=== PATIENT | female | born 1970 | race Caucasian/White ===

== ENCOUNTER 2018-12-04 10:30 | Inpatient (IN) | payer OTHER ==
[2018-12-04 12:44] VITALS: BMI 25.3
--- NOTE | 2018-12-04 14:03 | HP ---
COWS - Scale Resting Pulse: 0= [place] 80 or Below Sweatin= Chills/Flushing Restless Observation: 0= Sits Still Pupil Size: 0= Normal to Room Light Bone or Joint Aches: 4=Acute Joint/Muscle Pain Runny Nose/ Eye Tearin= None GI Upset > 30mins: 2= Nausea/Diarrhea Tremor Observation: 0= None Yawning Observation: 0= None Anxiety or Irritability: 2=Irritable/Anxious Goose Flesh Skin: 0=Smooth Skin COWS Score: 9 CIWA Score Nausea/Vomitin-Mild Nausea/No Vomiting Muscle Tremors: None Anxiety: 4-Mod. Anxious/Guarded Agitation: 1-Slight > Activity Paroxysmal Sweats: No Perspiration Orientation: 2-Disoriented Date<2 days Tacttile Disturbances: 2-Mild Itch/Numbness/Burn Auditory Disturbances: 0-None Visual Disturbances: 2-Mild Sensitivity Headache: 2-Mild CIWA-Ar Total Score: 14 - Admission Criteria OASAS Guidelines: Admission for Medically Managed Detox: Requires at least one of the followin. CIWA greater than 12 2. Seizures within the past 24 hours 3. Delirium tremens within the past 24 hours 4. Hallucinations within the past 24 hours 5. Acute intervention needed for co occurring medical disorder 6. Acute intervention needed for co occurring psychiatric disorder 7. Severe withdrawal that cannot be handled at a lower level of care (continued vomiting, continued diarrhea, abnormal vital signs) requiring intravenous medication and/or fluids 8. Admission ROS [facility] Allergies/Adverse Reactions: Allergies Allergy/AdvReac Type Severity Reaction Status Date / Time Penicillins AdvReac Hives Verified 12/04/18 12:22 shellfish derived AdvReac Swelling Verified 12/04/18 12:21 History of Present Illness: 48 y.o. pt requesting detox from etoh and opiate use , reports 1 -2 pints / day x " many years " since teens , reports longest sobriety 3 days , reports tremors if not drinking , denies seizures or blackouts , starts drinking upon awakening , latest use 2 days ago , current symptoms as above . heroin - reports 20 bags /day ivdu in toshia hands , needles from exchange , denies sharing, +re-using, denies abscess , denies OD , latest use yesterday evening , current symptoms as above , first age of use 27 from [place] . cocaine : " depends how much money I have " 50-500$ tobacco : 1 ppd . PMHX : asthma since childhood , intubated as , RA , chronic back pain 2/2 herniated discs PSych ; bipolar d/o manic/depressive, anxiety , denies SI / HI PSHx : r le laceration w/ nerve re-attachment in childhood ( age 9 ) LMP 18 mo ago . SHX : homeless , unemployed , denies legal issues. This report was requested by: Fannie De La Rosa | Reference #: [id number] Others' Prescriptions Patient Name: Sunita English Date: 1970 Address: [address] [place] [address] Sex: Female Rx Written Rx Dispensed Drug Quantity Days Supply Prescriber Name 06/17/2018 06/17/2018 oxycodone-acetaminophen 5-325 mg tab 30 5 Isatu Madrigal () Exam Limitations: No Limitations - Ebola screening Have you traveled outside of the country in the last 21 days: No (N) Have you had contact with anyone from an Ebola affected area: No Do you have a fever: No - Review of Systems Constitutional: Loss of Appetite EENT: reports: See HPI Respiratory: reports: Shortness of Breath Cardiac: reports: No Symptoms Reported GI: reports: Poor Appetite : reports: No Symptoms Reported Musculoskeletal: reports: See HPI Integumentary: reports: See HPI Neuro: reports: See HPI Endocrine: reports: No Symptoms Reported Psychiatric: reports: Orientated x3, Anxious Patient History - Smoking Cessation Smoking history: Current every day smoker Have you smoked in the past 12 months: Yes Hx Chewing Tobacco Use: No Initiated information on smoking cessation: No - Substances abused Heroin Substance route: Injection Frequency: Daily Amount used: 20 bags Age of first use: 37 Date of last use: 12/03/18 Cocaine Substance route: Smoking Frequency: Daily Amount used: ' 50 dollars to 500 hundred dollars. Age of first use: 14 Date of last use: 12/03/18 Alcohol Substance route: Oral Frequency: Daily Amount used: 1 to 2 pint vodka. wine coolers. Age of first use: 14 Date of last use: 12/02/18 Family Disease History - Family Disease History Family Disease History: Heart Disease: Mother, [place]: Grandparent (maternal ) Admission Physical Exam [facility]HS - Vital Signs Vital Signs: Vital Signs - 24 hr 12/04/18 12:20 Temperature 97.5 F L Pulse Rate 68 Respiratory 16 Rate Blood Pressure 100/68 - Physical General Appearance: Yes: Mild Distress, Irritable, Anxious HEENTM: Yes: Hearing grossly Normal, Normocephalic, Normal Voice Respiratory: Yes: No Respiratory Distress, No Accessory Muscle Use, Rhonchi (LLL ) Neck: Yes: No masses,lesions,Nodules, Trachea in good position Cardiology: Yes: Regular Rhythm, Regular Rate, S1, S2 Abdominal: Yes: Normal Bowel Sounds, Non Tender, Soft Back: Yes: Normal Inspection Musculoskeletal: Yes: Gait Steady Extremities: Yes: Normal Range of Motion, Non-Tender Neurological: Yes: Fully Oriented, Alert, Motor Strength 5/5, Depressed Affect Integumentary: Yes: Warm - Diagnostic (1) Alcohol dependence Current Visit: Yes Status: Acute Qualifiers: Substance use status: in withdrawal (2) Opioid dependence Current Visit: Yes Status: Acute Qualifiers: Substance use status: in withdrawal Qualified Code(s): F11.23 - Opioid dependence with withdrawal (3) Cocaine dependence Current Visit: Yes Status: Chronic Qualifiers: Substance use status: uncomplicated Qualified Code(s): F14.20 - Cocaine dependence, uncomplicated (4) Nicotine dependence Current Visit: Yes Status: Chronic Qualifiers: Nicotine product type: cigarettes Urine Drug Screen - Test Device Lot number: [id number] Expiration date: 08/28/20 - Control Is test valid?: Yes - Results Drug screen NEGATIVE: No Urine drug screen results: RAMONA-Cocaine, FEN-Fentanyl, MOP-Opiates Inpatient Rehab Admission - Rehab Decision to Admit Inpatient rehab admission?: No
[2018-12-04] MEDS ORDERED: ALBUTEROL SO4 8 GM HFA INHALER IH PRN (14:07)
[2018-12-04] MEDS ORDERED: ALBUTEROL SO4 0.083% IH SOL 2.5 MG/3 ML VIAL.NEB. NEB PRN (14:09)
[2018-12-04] MEDS ORDERED: ACETAMINOPHEN 325 MG TABLET (FP) PO PRN ×2 (14:11)
[2018-12-04] MEDS ORDERED: BISMUTH SUBSALICYLATE 262 MG/15 ML BTL PO PRN (14:11)
[2018-12-04] MEDS ORDERED: hydrOXYzine PAMOATE 25 MG CAPSULE (FP) PO PRN (14:11)
[2018-12-04] MEDS ORDERED: MAGNESIUM HYDROX 2400MG/30ML ORAL SUSPENSION 30 ML CUP PO PRN (14:11)
[2018-12-04] MEDS ORDERED: MAG HYDROX/AL HYDROX/SIMETH 30 ML UNIT-DOSE CUP PO PRN (14:11)
[2018-12-04] MEDS ORDERED: MENTHOL/PHENOL 1 EACH UD MM PRN (14:11)
[2018-12-04] MEDS ORDERED: MAGNESIUM CITRATE 300 ML BOTTLE PO PRN (14:11)
[2018-12-04] MEDS ORDERED: chlordiazePOXIDE HCL 25 MG CAPSULE PO ONE (15:45)
[2018-12-04] MEDS ORDERED: METHADONE HCL 10 MG TABLET (FOR DETOX USE ONLY) PO ONE (15:50)
[2018-12-04] MEDS: BUDESONIDE/FORMETEROL FUMARATE 160/4.5 mcg INHALER IH SCH (23:08)
[2018-12-04] MEDS: MONTELUKAST NA 10 MG TABLET PO SCH (23:08)
[2018-12-04] MEDS: chlordiazePOXIDE HCL 25 MG CAPSULE PO SCH (23:08)
[2018-12-04] MEDS: THIAMINE HCL 100 MG TABLET (FP) PO SCH (23:08)
[2018-12-05] MEDS: chlordiazePOXIDE HCL 25 MG CAPSULE PO SCH ×3 (05:51→22:42)
[2018-12-05] MEDS: IBUPROFEN 400 MG TABLET (FP) PO PRN ×2 (08:38→15:05)
[2018-12-05] MEDS: chlordiazePOXIDE HCL 10 MG CAPSULE PO PRN (08:54)
[2018-12-05] MEDS ORDERED: METHADONE HCL 10 MG TABLET (FOR DETOX USE ONLY) ONE (09:38)
[2018-12-05] MEDS ORDERED: METHADONE HCL 5 MG TABLET (FOR DETOX USE ONLY) ONE (09:39)
[2018-12-05] MEDS ORDERED: METHADONE (DETOX) 20 MG, METHADONE (DETOX) 5 MG PO ONE (10:00)
--- NOTE | 2018-12-05 10:19 | PN ---
S CIWA - CIWA Score Nausea/Vomitin-No Nausea/No Vomiting Muscle Tremors: None Anxiety: 3 Agitation: 3 Paroxysmal Sweats: 3 Orientation: 0-Oriented Tacttile Disturbances: 0-None Auditory Disturbances: 0-None Visual Disturbances: 0-None Headache: 2-Mild CIWA-Ar Total Score: 11 S COWS - Scale Resting Pulse: 0= [place] 80 or Below Sweatin= Beads of Sweat on Face Restless Observation: 1= Difficult to Sit Still Pupil Size: 0= Normal to Room Light Bone or Joint Aches: 2= Severe Diffuse Aches Runny Nose/ Eye Tearin= None GI Upset > 30mins: 0= None Tremor Observation of Outstretched Hands: 0= None Yawning Observation: 1= 1-2x During Session Anxiety or Irritability: 2=Irritable/Anxious Goose Flesh Skin: 0=Smooth Skin COWS Score: 9 [facility] Progress Note (SOAP) Subjective: c/o anxiety, irritability, sweats, and headache. Objective: 12/05/18 10:17 Vital Signs 12/05/18 12/05/18 12/05/18 03:30 06:00 06:30 Temperature 97.9 F Pulse Rate 57 L Respiratory 18 18 18 Rate Blood Pressure 118/84 12/05/18 12/05/18 07:16 08:47 Temperature 97.9 F 98.0 F Pulse Rate 57 L 67 Respiratory 18 18 Rate Blood Pressure 118/84 112/61 Labs pending. Assessment: 12/05/18 10:18 AOX3, in no acute distress. Full ROM, ambulating in the unit. Withdrawal symptoms. Plan: continue detox. increase fluids.
[2018-12-05 10:21] LABS: HEMOGLOBIN 13.4 GM/dL (10.7-15.3); MCH 27.6 pg (25.7-33.7); MCHC 32.8 g/dl (32.0-36.0); MEAN CELL VOLUME 84.1 fl (80-96); MEAN PLT VOLUME 8.8 fl (7.5-11.1); PLATELET COUNT 206 K/MM3 (134-434); RBC 4.87 M/mm3 (3.60-5.2); RDW 15.1 % (11.6-15.6); WHITE BLOOD COUNT 5.6 K/mm3 (4.0-10.0)
[2018-12-05 10:29] LABS: ALBUMIN 3.4 g/dl (3.4-5.0); BILIRUBIN,TOTAL 0.3 mg/dL (0.2-1); BLOOD UREA NITROGEN 15.6 mg/dL (7-18); CALCIUM 9.1 mg/dL (8.5-10.1); CREATININE 0.7 mg/dL (0.55-1.3); POTASSIUM 4.1 mmol/L (3.5-5.1); TOT PROT 7.6 g/dl (6.4-8.2)
[2018-12-05] MEDS: PRENATAL VITAMINS W/ FOLIC ACID TABLET (FP) PO SCH (10:38)
[2018-12-05] MEDS: BUDESONIDE/FORMETEROL FUMARATE 160/4.5 mcg INHALER IH SCH ×2 (10:38→22:44)
[2018-12-05] MEDS: IRON PO SCH (10:38)
[2018-12-05] MEDS: VIT C PO SCH (10:38)
[2018-12-05] MEDS: [UNRECOGNIZED DRUG - OTHER] PO SCH (10:38)
--- NOTE | 2018-12-05 17:17 | CONSULT ---
[facility] Psychiatric Consult - Data Date of interview: 12/05/18 Admission source: [facility] Identifying data: First admission to [facility] for this 48 y/o female self-referred for detoxification (heroin, cocaine/crack). Interviewed at [address] [place] [address]. Patient is single, no children, homeless, unemployed and deprived of any source of income. Substance Abuse History: Discussed with patient. Details in current [facility] report as follows : Smoking history: Current every day smoker. Have you smoked in the past 12 months: Yes. Hx Chewing Tobacco Use: No. Initiated information on smoking cessation: No. - Substances abused. Heroin. Substance route: Injection. Frequency: Daily. Amount used: 20 bags. Age of first use: 37. Date of last use: 12/03/18. Cocaine. Substance route: Smoking. Frequency: Daily. Amount used: ' 50 dollars to 500 hundred dollars. Age of first use: 14. Date of last use: 12/03/18. Alcohol. Substance route: Oral. Frequency : Daily. Amount used: 1 to 2 pint vodka. wine coolers. Age of first use: 14. Date of last use: 12/02/18 Medical History: Remarkable for bronchial asthma, arthritis, chronic lumbar pain and herniated discs. Allergy to penicillins. Psychiatric History: Patient endorses a distant history of psychiatric hospitalizations (during childhood). Known to [facility]. Was hospitalized at age 9 + 10 + 12 for suicide attempts via overdose with pills. Diagnosed with MDD and Anxiety Disorder. Prescribed prozac 20 mg/day + seroquel 25 mg/bid + gabapentin 300 mg/tid (primary care doctor). Medications are confirmed via survey of review of pharmacy activity of 11/17/18 at [facility] [place]. Physical/Sexual Abuse/Trauma History: Patient declines to discuss this domain. Additional Comment: Urine drug screen results: RAMONA-Cocaine, FEN-Fentanyl, MOP- Opiates. Noted. Mental Status Exam - Mental Status Exam Alert and Oriented to: Time, Place, Person Cognitive Function: Good Patient Appearance: Well Groomed Mood: Nervous, Withdrawn, Anxious Affect: Appropriate, Mood Congruent, Constricted Patient Behavior: Appropriate, Cooperative Speech Pattern: Clear Voice Loudness: Normal Thought Process: Intact, Goal Oriented Thought Disorder: Not Present Hallucinations: Denies Suicidal Ideation: Denies Insight/Judgement: Fair Sleep: Poorly, Difficulty falling asleep Appetite: Good Gait/Station: Normal Psychiatric Findings - Problem List ([place] 1, 2,3) (1) Alcohol dependence Current Visit: Yes Status: Chronic Qualifiers: Substance use status: in withdrawal (2) Opioid dependence Current Visit: Yes Status: Chronic Qualifiers: Substance use status: in withdrawal Qualified Code(s): F11.23 - Opioid dependence with withdrawal (3) Cocaine dependence Current Visit: Yes Status: Chronic Qualifiers: Substance use status: uncomplicated Qualified Code(s): F14.20 - Cocaine dependence, uncomplicated (4) Nicotine dependence Current Visit: Yes Status: Chronic Qualifiers: Nicotine product type: cigarettes (5) Substance induced mood disorder Current Visit: Yes Status: Chronic (6) Depressive disorder Current Visit: Yes Status: Chronic (7) Insomnia Current Visit: Yes Status: Chronic - Initial Treatment Plan Initial Treatment Plan: Psychoeducation. Sleep hygiene. Support. Motivational counseling. Detoxification. Medications resumed : prozac 20 mg po daily + gabapentin 300 mg po tid + seroquel 25 mg po bid. Side effects/benefits of these drugs are discussed with patient. Agrees with care. Gave verbal consent to MD. Jj.
--- NOTE | 2018-12-05 18:59 | EKG ---
Test Reason : Blood Pressure : / mmHG Vent. Rate : 063 BPM Atrial Rate : 063 BPM P-R Int : 156 ms QRS Dur : 084 ms QT Int : 404 ms P-R-T Axes : 055 043 029 degrees QTc Int : 413 ms NORMAL SINUS RHYTHM NORMAL ECG NO PREVIOUS ECGS AVAILABLE Confirmed by SHAILESH GAMINO MD ([id number]) on 12/05/2018 6:59:44 PM Referred By: Confirmed By:SHAILESH GAMINO MD
[2018-12-05] MEDS: CYCLOBENZAPRINE HCL 5 MG TABLET PO PRN (19:09)
[2018-12-05] MEDS ORDERED: GABAPENTIN 100 MG CAPSULE (FP) PO SCH (22:00)
[2018-12-05] MEDS: THIAMINE HCL 100 MG TABLET (FP) PO SCH (22:42)
[2018-12-05] MEDS: MONTELUKAST NA 10 MG TABLET PO SCH (22:42)
[2018-12-05] MEDS: QUEtiapine FUMARATE 25 MG TABLET (FP) PO SCH (22:42)
[2018-12-06] MEDS: chlordiazePOXIDE 5 MG CAPSULE PO SCH ×3 (06:14→22:37)
[2018-12-06] MEDS: chlordiazePOXIDE HCL 10 MG CAPSULE PO PRN (06:43)
[2018-12-06] MEDS: IBUPROFEN 400 MG TABLET (FP) PO PRN (08:38)
[2018-12-06] MEDS ORDERED: METHADONE HCL 10 MG TABLET (FOR DETOX USE ONLY) PO ONE (10:00)
[2018-12-06] MEDS: IRON PO SCH (10:20)
[2018-12-06] MEDS: FLUoxetine HCL 20 MG CAPSULE (FP) PO SCH (10:20)
[2018-12-06] MEDS: [UNRECOGNIZED DRUG - OTHER] PO SCH (10:20)
[2018-12-06] MEDS: VIT C PO SCH (10:20)
[2018-12-06] MEDS: QUEtiapine FUMARATE 25 MG TABLET (FP) PO SCH ×2 (10:21→22:37)
[2018-12-06] MEDS: PRENATAL VITAMINS W/ FOLIC ACID TABLET (FP) PO SCH (10:21)
[2018-12-06] MEDS: BUDESONIDE/FORMETEROL FUMARATE 160/4.5 mcg INHALER IH SCH ×2 (10:21→22:52)
[2018-12-06] MEDS: CYCLOBENZAPRINE HCL 5 MG TABLET PO PRN (10:25)
--- NOTE | 2018-12-06 11:18 | PN ---
[facility] CIWA - CIWA Score Nausea/Vomitin-No Nausea/No Vomiting Muscle Tremors: 2 Anxiety: 2 Agitation: 2 Paroxysmal Sweats: 2 Orientation: 0-Oriented Tacttile Disturbances: 0-None Auditory Disturbances: 0-None Visual Disturbances: 0-None Headache: 0-None Present CIWA-Ar Total Score: 8 S COWS - Scale Resting Pulse: 1= [place] 81-100 Sweatin= Chills/Flushing Restless Observation: 3= Extraneous Movement Pupil Size: 0= Normal to Room Light Bone or Joint Aches: 1= Mild Discomfort Runny Nose/ Eye Tearin= None GI Upset > 30mins: 0= None Tremor Observation of Outstretched Hands: 2= Slight Tremor Visible Yawning Observation: 0= None Anxiety or Irritability: 2=Irritable/Anxious Goose Flesh Skin: 0=Smooth Skin COWS Score: 10 [facility] Progress Note (SOAP) Subjective: Anxious, chills, back pain (requesting heating pad for back pain) Objective: 12/06/18 11:16 Last Vital Signs Temp Pulse Resp BP Pulse Ox 99 F 82 18 94/61 12/06/18 09:23 12/06/18 09:23 12/06/18 09:23 12/06/18 09:23 Hypotension noted (b/p: 94/61), asymptomatic, encouraged to drink more water Laboratory Tests 12/05/18 12/05/18 12/05/18 08:00 08:00 08:00 WBC 5.6 RBC 4.87 Hgb 13.4 Hct 41.0 MCV 84.1 MCH 27.6 MCHC 32.8 RDW 15.1 Plt Count 206 MPV 8.8 Manual Slide Review No clotting detected Platelet Comment No clumping noted Sodium 141 Potassium 4.1 Chloride 106 Carbon Dioxide 26 Anion Gap 9 BUN 15.6 Creatinine 0.7 Est GFR (CKD-EPI)AfAm 119.58 Est GFR (CKD-EPI)NonAf 103.18 Random Glucose 87 Calcium 9.1 Total Bilirubin 0.3 AST 24 ALT 32 Alkaline Phosphatase 176 H Total Protein 7.6 Albumin 3.4 RPR Titer Nonreactive HIV 1&2 Ag/Ab, 4th Gen HIV 1&2 Antibody Screen HIV P24 Antigen 12/05/18 12/05/18 08:00 09:00 WBC RBC Hgb Hct MCV MCH MCHC RDW Plt Count MPV Manual Slide Review Platelet Comment Sodium Potassium Chloride Carbon Dioxide Anion Gap BUN Creatinine Est GFR (CKD-EPI)AfAm Est GFR (CKD-EPI)NonAf Random Glucose Calcium Total Bilirubin AST ALT Alkaline Phosphatase Total Protein Albumin RPR Titer HIV 1&2 Ag/Ab, 4th Gen Non reactive HIV 1&2 Antibody Screen Cancelled HIV P24 Antigen Cancelled Labs reviewed: alk phos 176 Assessment: 12/06/18 11:19 Withdrawal sxs Noted with hypotension and elevated alk phos level Plan: Continue detox Heating pad q4hr prn for back pain Hypotension: asymptomatic, encouraged PO water intake Elevated alkaline phosphatase: denies injury (has arthritis), most likely due to withdrawal, repeat alk phos level
[2018-12-06] MEDS: MONTELUKAST NA 10 MG TABLET PO SCH (22:37)
[2018-12-06] MEDS: THIAMINE HCL 100 MG TABLET (FP) PO SCH (22:37)
[2018-12-06] MEDS: MELATONIN 5 MG TABLETS PO PRN (22:37)
[2018-12-07] MEDS ORDERED: chlordiazePOXIDE HCL 10 MG CAPSULE PO PRN
[2018-12-07] MEDS: chlordiazePOXIDE HCL 10 MG CAPSULE PO SCH ×3 (05:25→22:12)
--- NOTE | 2018-12-07 08:43 | PN ---
[facility] CIWA - CIWA Score Nausea/Vomitin-No Nausea/No Vomiting Muscle Tremors: None Anxiety: 2 Agitation: 2 Paroxysmal Sweats: No Perspiration Orientation: 0-Oriented Tacttile Disturbances: 0-None Auditory Disturbances: 0-None Visual Disturbances: 0-None Headache: 0-None Present CIWA-Ar Total Score: 4 [facility] COWS - Scale Resting Pulse: 0= [place] 80 or Below Sweatin= No chills or Flushing Restless Observation: 0= Sits Still Pupil Size: 0= Normal to Room Light Bone or Joint Aches: 1= Mild Discomfort Runny Nose/ Eye Tearin= None Tremor Observation of Outstretched Hands: 0= None Yawning Observation: 0= None Anxiety or Irritability: 1=Feels Anxious/Irritable Goose Flesh Skin: 0=Smooth Skin COWS Score: 2 S Progress Note (SOAP) Subjective: Patient has no complaints though seen in bed and only complains of her chronic back pain. Objective: 12/07/18 08:41 BP: 95/54 P:53 R:18 T:97.7 Laboratory 12/05/18 12/05/18 12/05/18 08:00 08:00 08:00 WBC 5.6 K/mm3 K/mm3 (4.0-10.0) RBC 4.87 M/mm3 M/mm3 (3.60-5.2) Hgb 13.4 GM/dL GM/dL (10.7-15.3) Hct 41.0 % % (32.4-45.2) MCV 84.1 fl fl (80-96) MCH 27.6 pg pg (25.7-33.7) MCHC 32.8 g/dl g/dl (32.0-36.0) RDW 15.1 % % (11.6-15.6) Plt Count 206 K/MM3 K/MM3 (134-434) MPV 8.8 fl fl (7.5-11.1) Manual Slide Review No clotting detected Platelet Comment No clumping noted Sodium 141 mmol/L mmol/L (136-145) Potassium 4.1 mmol/L mmol/L (3.5-5.1) Chloride 106 mmol/L mmol/L (98-107) Carbon Dioxide 26 mmol/L mmol/L (21-32) Anion Gap 9 MMOL/L MMOL/L (8-16) BUN 15.6 mg/dL mg/dL (7-18) Creatinine 0.7 mg/dL mg/dL (0.55-1.3) Est GFR (CKD-EPI)AfAm 119.58 Est GFR (CKD-EPI)NonAf 103.18 Random Glucose 87 mg/dL mg/dL (74-106) Calcium 9.1 mg/dL mg/dL (8.5-10.1) Total Bilirubin 0.3 mg/dL mg/dL (0.2-1) AST 24 U/L U/L (15-37) ALT 32 U/L U/L (13-61) Alkaline Phosphatase 176 U/L H U/L (45-117) Total Protein 7.6 g/dl g/dl (6.4-8.2) Albumin 3.4 g/dl g/dl (3.4-5.0) RPR Titer Nonreactive (NONREACTIVE) HIV 1&2 Ag/Ab, 4th Gen HIV 1&2 Antibody Screen HIV P24 Antigen 12/05/18 12/05/18 08:00 09:00 WBC RBC Hgb Hct MCV MCH MCHC RDW Plt Count MPV Manual Slide Review Platelet Comment Sodium Potassium Chloride Carbon Dioxide Anion Gap BUN Creatinine Est GFR (CKD-EPI)AfAm Est GFR (CKD-EPI)NonAf Random Glucose Calcium Total Bilirubin AST ALT Alkaline Phosphatase Total Protein Albumin RPR Titer HIV 1&2 Ag/Ab, 4th Gen Non reactive (Non Reactive) HIV 1&2 Antibody Screen Cancelled HIV P24 Antigen Cancelled Assessment: 12/07/18 08:42 1. Opioid and Alcohol Dependence: Plan: 1. Continue detox protocols. Doing much better and mild withdrawal symptoms. Encourage more activity and increase po intake.
[2018-12-07] MEDS: CYCLOBENZAPRINE HCL 5 MG TABLET PO PRN (09:32)
[2018-12-07] MEDS: VIT C PO SCH (09:33)
[2018-12-07] MEDS: PRENATAL VITAMINS W/ FOLIC ACID TABLET (FP) PO SCH (09:33)
[2018-12-07] MEDS: [UNRECOGNIZED DRUG - OTHER] PO SCH (09:33)
[2018-12-07] MEDS: IRON PO SCH (09:33)
[2018-12-07] MEDS ORDERED: METHADONE HCL 10 MG TABLET (FOR DETOX USE ONLY) ONE (09:37)
[2018-12-07] MEDS ORDERED: METHADONE HCL 5 MG TABLET (FOR DETOX USE ONLY) ONE (09:38)
[2018-12-07] MEDS ORDERED: METHADONE (DETOX) 10 MG, METHADONE (DETOX) 5 MG PO ONE (10:00)
[2018-12-07] MEDS: QUEtiapine FUMARATE 25 MG TABLET (FP) PO SCH ×2 (10:45→22:12)
[2018-12-07] MEDS: FLUoxetine HCL 20 MG CAPSULE (FP) PO SCH (10:45)
[2018-12-07] MEDS: BUDESONIDE/FORMETEROL FUMARATE 160/4.5 mcg INHALER IH SCH ×2 (10:45→22:38)
[2018-12-07] MEDS: IBUPROFEN 400 MG TABLET (FP) PO PRN (15:51)
[2018-12-07] MEDS ORDERED: BENZOCAINE 20 % GEL TUBE MM PRN (16:45)
[2018-12-07] MEDS ORDERED: ' PO PRN (16:46)
[2018-12-07] MEDS: MONTELUKAST NA 10 MG TABLET PO SCH (22:12)
[2018-12-07] MEDS: MELATONIN 5 MG TABLETS PO PRN (22:12)
[2018-12-07] MEDS: THIAMINE HCL 100 MG TABLET (FP) PO SCH (22:12)
[2018-12-08] MEDS ORDERED: chlordiazePOXIDE HCL 10 MG CAPSULE PO ONE (05:00)
[2018-12-08] MEDS: CYCLOBENZAPRINE HCL 5 MG TABLET PO PRN (05:49)
--- NOTE | 2018-12-08 09:26 | PN ---
[facility] CIWA - CIWA Score Nausea/Vomitin-Mild Nausea/No Vomiting Muscle Tremors: 1-None Visible, but [place] Anxiety: 2 Agitation: 2 Paroxysmal Sweats: No Perspiration Orientation: 0-Oriented Tacttile Disturbances: 0-None Auditory Disturbances: 0-None Visual Disturbances: 0-None Headache: 2-Mild CIWA-Ar Total Score: 8 [facility] COWS - Scale Resting Pulse: 0= [place] 80 or Below Sweatin= No chills or Flushing Restless Observation: 1= Difficult to Sit Still Pupil Size: 0= Normal to Room Light Bone or Joint Aches: 1= Mild Discomfort Runny Nose/ Eye Tearin= Nasal Congestion GI Upset > 30mins: 1= Stomach Cramp Tremor Observation of Outstretched Hands: 1= Tremor [place], Not Seen Yawning Observation: 1= 1-2x During Session Anxiety or Irritability: 2=Irritable/Anxious Goose Flesh Skin: 0=Smooth Skin COWS Score: 8 [facility] Progress Note (SOAP) Subjective: alert,irritable,anxious,interrupted sleep,pain in the body Objective: 12/08/18 09:25 Vital Signs Temperature 97.5 F L 12/08/18 06:21 Pulse Rate 57 L 12/08/18 06:21 Respiratory Rate 18 12/08/18 06:21 Blood Pressure 90/50 L 12/08/18 06:21 O2 Sat by Pulse Oximetry (%) Assessment: 12/08/18 09:25 withdrawal symptom Plan: continue detox methadone and librium regimen,discharge in am
[2018-12-08] MEDS ORDERED: METHADONE HCL 10 MG TABLET (FOR DETOX USE ONLY) PO ONE (10:00)
[2018-12-08] MEDS: PRENATAL VITAMINS W/ FOLIC ACID TABLET (FP) PO SCH (10:01)
[2018-12-08] MEDS: BUDESONIDE/FORMETEROL FUMARATE 160/4.5 mcg INHALER IH SCH ×2 (10:02→22:55)
[2018-12-08] MEDS: QUEtiapine FUMARATE 25 MG TABLET (FP) PO SCH ×2 (11:01→23:06)
[2018-12-08] MEDS: FLUoxetine HCL 20 MG CAPSULE (FP) PO SCH (11:01)
[2018-12-08] MEDS: [UNRECOGNIZED DRUG - OTHER] PO SCH (11:02)
[2018-12-08] MEDS: IRON PO SCH (11:02)
[2018-12-08] MEDS: VIT C PO SCH (11:02)
[2018-12-08] MEDS: MELATONIN 5 MG TABLETS PO PRN (23:06)
[2018-12-08] MEDS: THIAMINE HCL 100 MG TABLET (FP) PO SCH (23:06)
[2018-12-08] MEDS: MONTELUKAST NA 10 MG TABLET PO SCH (23:06)
[2018-12-09] MEDS ORDERED: METHADONE HCL 5 MG TABLET (FOR DETOX USE ONLY) PO ONE (06:00)
--- NOTE | 2018-12-09 08:35 | DS ---
[facility] Detox Discharge Summary Admission Date: 12/04/18 Discharge Date: 12/09/18 - History Present History: Alcohol Dependence, Cocaine Dependence, Opioid Dependence - Physical Exam Results Vital Signs: Vital Signs Temperature 97.9 F 12/09/18 07:14 Pulse Rate 59 L 12/09/18 07:14 Respiratory Rate 17 12/09/18 07:14 Blood Pressure 102/62 12/09/18 07:14 O2 Sat by Pulse Oximetry (%) Pertinent Admission Physical Exam Findings: pt arrived in withdrawals Laboratory Tests 12/05/18 12/05/18 12/05/18 08:00 08:00 08:00 WBC 5.6 RBC 4.87 Hgb 13.4 Hct 41.0 MCV 84.1 MCH 27.6 MCHC 32.8 RDW 15.1 Plt Count 206 MPV 8.8 Manual Slide Review No clotting detected Platelet Comment No clumping noted Sodium 141 Potassium 4.1 Chloride 106 Carbon Dioxide 26 Anion Gap 9 BUN 15.6 Creatinine 0.7 Est GFR (CKD-EPI)AfAm 119.58 Est GFR (CKD-EPI)NonAf 103.18 Random Glucose 87 Calcium 9.1 Total Bilirubin 0.3 AST 24 ALT 32 Alkaline Phosphatase 176 H Total Protein 7.6 Albumin 3.4 RPR Titer Nonreactive HIV 1&2 Ag/Ab, 4th Gen HIV 1&2 Antibody Screen HIV P24 Antigen TB (QFT) Incubation TB Test (QFT) Nil TB Test (QFT) Mitogen TB Test (QFT) Antigen TB Test (QFT) TB Positive Criteria 12/05/18 12/05/18 12/05/18 08:00 08:00 09:00 WBC RBC Hgb Hct MCV MCH MCHC RDW Plt Count MPV Manual Slide Review Platelet Comment Sodium Potassium Chloride Carbon Dioxide Anion Gap BUN Creatinine Est GFR (CKD-EPI)AfAm Est GFR (CKD-EPI)NonAf Random Glucose Calcium Total Bilirubin AST ALT Alkaline Phosphatase Total Protein Albumin RPR Titer HIV 1&2 Ag/Ab, 4th Gen Non reactive HIV 1&2 Antibody Screen Cancelled HIV P24 Antigen Cancelled TB (QFT) Incubation TB Test (QFT) Nil 0.33 TB Test (QFT) Mitogen 2.78 TB Test (QFT) Antigen 0.41 TB Test (QFT) Negative TB Positive Criteria 12/07/18 08:00 WBC RBC Hgb Hct MCV MCH MCHC RDW Plt Count MPV Manual Slide Review Platelet Comment Sodium Potassium Chloride Carbon Dioxide Anion Gap BUN Creatinine Est GFR (CKD-EPI)AfAm Est GFR (CKD-EPI)NonAf Random Glucose Calcium Total Bilirubin AST ALT Alkaline Phosphatase 153 H Total Protein Albumin RPR Titer HIV 1&2 Ag/Ab, 4th Gen HIV 1&2 Antibody Screen HIV P24 Antigen TB (QFT) Incubation TB Test (QFT) Nil TB Test (QFT) Mitogen TB Test (QFT) Antigen TB Test (QFT) TB Positive Criteria today pt is aaox3 ambulating no acute distress no s/s of withdrawals - Treatment Hospital Course: Detox Protocol Followed, Detoxed Safely, Responded well, Discharged Condition Good, Rehab Referral Accepted Patient has Accepted a Rehab Referral to: pt referred to [facility] or [facility] - Medication Discharge Medications: Ambulatory Orders Albuterol Sulfate Inhaler - [Ventolin HFA Inhaler -] 2 inhaler PO Q4HWA Cyclobenzaprine HCl 10 mg PO TID 12/04/18 Fluoxetine HCl [Prozac] 20 mg PO DAILY 12/04/18 Folic Acid 1 tablet PO DAILY 12/04/18 Gabapentin 100 mg PO TID 12/04/18 Iron/Vit C/Fructooligosacchard [Chewable Iron 30 mg Tablet] 1 tablet PO DAILY Lorazepam [Ativan] 2 mg PO BID 12/04/18 Montelukast Na [Singulair -] 10 mg PO HS 12/04/18 Quetiapine Fumarate [Seroquel -] 25 mg PO BID 12/04/18 SYMBICORT 160/4.5mcg - 2 inhaler PO BID 12/04/18 Vitamin B1 - 100 mg PO BID 12/04/18 - Diagnosis (1) Alcohol dependence Current Visit: Yes Status: Chronic Qualifiers: Substance use status: uncomplicated Qualified Code(s): F10.20 - Alcohol dependence, uncomplicated (2) Cocaine dependence Current Visit: Yes Status: Chronic Qualifiers: Substance use status: uncomplicated Qualified Code(s): F14.20 - Cocaine dependence, uncomplicated (3) Depressive disorder Current Visit: Yes Status: Chronic (4) Insomnia Current Visit: Yes Status: Chronic (5) Nicotine dependence Current Visit: Yes Status: Chronic Qualifiers: Nicotine product type: cigarettes (6) Opioid dependence Current Visit: Yes Status: Chronic Qualifiers: Substance use status: uncomplicated Qualified Code(s): F11.20 - Opioid dependence, uncomplicated (7) Substance induced mood disorder Current Visit: Yes Status: Chronic - AMA Did Patient Leave Against Medical Advice: No
[2018-12-09 09:27] VITALS: BP 93/53; PULSE 88; TEMP 98
[2018-12-09] MEDS: PRENATAL VITAMINS W/ FOLIC ACID TABLET (FP) PO SCH (10:38)
[2018-12-09] MEDS: FLUoxetine HCL 20 MG CAPSULE (FP) PO SCH (10:38)
[2018-12-09] MEDS: QUEtiapine FUMARATE 25 MG TABLET (FP) PO SCH (10:38)
[2018-12-09] MEDS: [UNRECOGNIZED DRUG - OTHER] PO SCH (10:39)
[2018-12-09] MEDS: VIT C PO SCH (10:39)
[2018-12-09] MEDS: IRON PO SCH (10:39)
[2018-12-09] MEDS: BUDESONIDE/FORMETEROL FUMARATE 160/4.5 mcg INHALER IH SCH (10:40)
[2018-12-09] MEDS: CYCLOBENZAPRINE HCL 5 MG TABLET PO PRN (10:56)
== END 2018-12-09 11:54 | disposition other institution (70) | DRG 773 ==
LOC: YASAS 10:30 → Y6N 15:36
PROVIDERS: ADMIT Surgery; ATTEND Surgery
PROC: HZ2ZZZZ Detoxification Services for Substance Abuse Treatment (ICD-10-PCS; principal; 2018-12-04)
DX: F11.23 Opioid dependence with withdrawal (principal); F10.230 Alcohol dependence with withdrawal, uncomplicated; F14.20 Cocaine dependence, uncomplicated; F17.210 Nicotine dependence, cigarettes, uncomplicated; F32.9 Major depressive disorder, single episode, unspecified; F19.24 Other psychoactive substance dependence with psychoactive substance-induced mood disorder; G47.00 Insomnia, unspecified; I95.9 Hypotension, unspecified; R74.8 Abnormal levels of other serum enzymes; J45.909 Unspecified asthma, uncomplicated; M19.90 Unspecified osteoarthritis, unspecified site; M54.5 Low back pain; G89.29 Other chronic pain; Z88.0 Allergy status to penicillin; Z91.013 Allergy to seafood
CPT/HCPCS: 36415; 80053; 84075; 85027; 86480; 86593; 87389; 93005; 93010

== ENCOUNTER 2018-12-09 12:02 | Inpatient (IN) | payer OTHER | END 2018-12-15 20:50 | disposition home or self-care (01) | LOC: YASAS 12:02 → Y3E 12-10 11:40 ==

== ENCOUNTER 2019-01-18 11:25 | Inpatient (IN) | payer OTHER ==
[2019-01-18 12:02] VITALS: BMI 24.7
--- NOTE | 2019-01-18 12:38 | HP ---
COWS - Scale Resting Pulse: 0= [place] 80 or Below Sweatin= No chills or Flushing Restless Observation: 1= Difficult to Sit Still Pupil Size: 0= Normal to Room Light Bone or Joint Aches: 1= Mild Discomfort Runny Nose/ Eye Tearin= None GI Upset > 30mins: 2= Nausea/Diarrhea Tremor Observation: 2= Slight Tremor Visible Yawning Observation: 1= 1-2x During Session Anxiety or Irritability: 2=Irritable/Anxious Goose Flesh Skin: 0=Smooth Skin COWS Score: 9 CIWA Score Nausea/Vomitin Muscle Tremors: 2 Anxiety: 3 Agitation: 1-Slight > Activity Paroxysmal Sweats: No Perspiration Orientation: 0-Oriented Tacttile Disturbances: 0-None Auditory Disturbances: 1-Very Mild Visual Disturbances: 2-Mild Sensitivity Headache: 0-None Present CIWA-Ar Total Score: 12 - Admission Criteria OASAS Guidelines: Admission for Medically Managed Detox: Requires at least one of the followin. CIWA greater than 12 2. Seizures within the past 24 hours 3. Delirium tremens within the past 24 hours 4. Hallucinations within the past 24 hours 5. Acute intervention needed for co occurring medical disorder 6. Acute intervention needed for co occurring psychiatric disorder 7. Severe withdrawal that cannot be handled at a lower level of care (continued vomiting, continued diarrhea, abnormal vital signs) requiring intravenous medication and/or fluids 8. Admitting History and Physical - Smoking History Smoking history: Current every day smoker Have you smoked in the past 12 months: Yes Admission [facility] Chief Complaint: Detox from alcohol, heroin, drugs Allergies/Adverse Reactions: Allergies Allergy/AdvReac Type Severity Reaction Status Date / Time Penicillins AdvReac Hives Verified 01/18/19 11:48 shellfish derived AdvReac Swelling Verified 01/18/19 11:48 History of Present Illness: 48 year old female with past medical history of asthma, chronic back pain from 2 herniated discs/sciatica, prediabetic presents for alcohol/heroin detox. Last here 2 months ago for both detox and rehab. Left rehab early for "tooth infection". States that she would like detox but not necessarily inpatient rehab again. Alcohol Use: on and off every other day, 2 pints of vodka with couple wine coolers; starts to get tremors and gets disoriented when stops drinking; never had a withdrawal seizure. started drinking at 14 years old. Longest sobriety 18 months at 20 years old. Has had blackouts. Starts drinking in the morning. Drinks to "forget". Last drink was yesterday (1 shot of vodka) Heroin: 25-30 bags per day every day, last used last night; uses intravenously in arms. never had an abscess; never OD'd. Has passed out. Has a narcan kit. Using for last 9/10 years. Increased the number of bags since last time she was here. Formerly on methadone, stopped taking it in August of this year. Crack: $100-$500 per day minimum, smokes it; started at 14 years old Oxycodone: does not use; patient is not sure why it is in her urine ([facility] shows prescription in 05/2018, patient says it was for pain) Cigarettes: half a pack a day for 35 years Surgical History: R leg surgery for laceration as a child Psychiatric History: bipolar (manic), anxiety, no suicidal/homicidal ideations Social History: lives with a friend, not working, was a cook back in 2010 Family History: keeps in touch with mom and sisters, is not around them when using - Ebola screening Have you traveled outside of the country in the last 21 days: No Have you had contact with anyone from an Ebola affected area: No Do you have a fever: No - Review of Systems Constitutional: No Symptoms Reported EENT: reports: No Symptoms Reported Respiratory: reports: Cough, Shortness of Breath, Productive cough (yellow color ) Cardiac: reports: Lightheadedness GI: reports: Nausea, Poor Appetite : reports: No Symptoms Reported, Hematuria (Spotting blood when urinate) Musculoskeletal: reports: Back Pain, Joint Pain Integumentary: reports: Lesions (On L arm) Neuro: reports: Headache, Tremors Endocrine: reports: Unexplained Weight Loss Hematology: reports: Anemia Psychiatric: reports: Judgement Intact, Mood/Affect Appropiate, Orientated x3, Agitated, Anxious, Depressed Patient History - Patient Medical History Hx Asthma: Yes Hx Chronic Obstructive Pulmonary Disease (COPD): No Hx Cardiac Disorders: No Hx Hypertension: No Hx Seizures: No Hx Diabetes: Yes (prediabetes) Hx Gastrointestinal Disorders: Yes (Gastritis) Hx Genitourinary Disorders: No Hx Sexually Transmitted Disorders: Yes (Gonorrhea in the past) Hx Renal Disease (ESRD): No Hx Depression: Yes Hx Suicide Attempt: No Hx Schizophrenia: No - Patient Surgical History Past Surgical History: Yes Other Surgical History: R leg nerve repair - Smoking Cessation Smoking history: Current every day smoker Have you smoked in the past 12 months: Yes Hx Chewing Tobacco Use: No Initiated information on smoking cessation: Yes 'Breaking Loose' booklet given: 01/18/19 - Substances abused Heroin Substance route: Injection Frequency: Daily Amount used: 25-30 bags Age of first use: 37 Date of last use: 01/17/19 Cocaine Substance route: Smoking Frequency: Daily Amount used: $100-$500 Age of first use: 14 Date of last use: 01/17/19 Alcohol Substance route: Oral Frequency: 3-6 times per week Amount used: 2 pints of vodka & (3) 24oz wine cooler Age of first use: 14 Date of last use: 01/16/19 Admission Physical Exam BHS - Vital Signs Vital Signs: Vital Signs - 24 hr 01/18/19 11:56 Temperature 98.0 F Pulse Rate 79 Respiratory 18 Rate Blood Pressure 99/66 - Physical General Appearance: Yes: No Apparent Distress, Appropriately Dressed HEENTM: Yes: Normocephalic Respiratory: Yes: Chest Non-Tender, Lungs Clear Breast: Yes: Within Normal Limits Cardiology: Yes: Regular Rhythm, Regular Rate Abdominal: Yes: Normal Bowel Sounds, Non Tender, Flat, Soft Back: Yes: Normal Inspection Musculoskeletal: Yes: full range of Motion, Gait Steady Extremities: Yes: Normal Capillary Refill, Normal Inspection Neurological: Yes: custom designer II-XII NML intact, Fully Oriented, Motor Strength 5/5, Normal Mood/Affect Integumentary: Yes: Normal Color, Dry, Warm, Track Duarte Lymphatic: Yes: Within Normal Limits - Diagnostic (1) Alcohol dependence Current Visit: No Status: Chronic Qualifiers: Substance use status: uncomplicated Qualified Code(s): F10.20 - Alcohol dependence, uncomplicated (2) Cocaine dependence Current Visit: No Status: Chronic Qualifiers: Substance use status: uncomplicated Qualified Code(s): F14.20 - Cocaine dependence, uncomplicated (3) Opioid dependence Current Visit: No Status: Chronic Qualifiers: Substance use status: uncomplicated Qualified Code(s): F11.20 - Opioid dependence, uncomplicated (4) Substance induced mood disorder Current Visit: No Status: Chronic Cleared for Admission [facility] - Detox or Rehab [facility] Level of Care: Medically Supervised Breathalyzer - Breathalyzer Breathalyzer: 0 Urine Drug Screen - Test Device Lot number: [id number] Expiration date: 08/28/20 - Control Is test valid?: Yes - Results Drug screen NEGATIVE: No Urine drug screen results: RAMONA-Cocaine, FEN-Fentanyl, MOP-Opiates, OXY-Oxycodone Inpatient Rehab Admission - Rehab Decision to Admit Inpatient rehab admission?: No
[2019-01-18] MEDS ORDERED: MAG HYDROX/AL HYDROX/SIMETH 30 ML UNIT-DOSE CUP PO PRN (13:05)
[2019-01-18] MEDS ORDERED: hydrOXYzine PAMOATE 25 MG CAPSULE (FP) PO PRN (13:05)
[2019-01-18] MEDS ORDERED: MAGNESIUM CITRATE 300 ML BOTTLE PO PRN (13:05)
[2019-01-18] MEDS ORDERED: BISMUTH SUBSALICYLATE 262 MG/15 ML BTL PO PRN (13:05)
[2019-01-18] MEDS ORDERED: MENTHOL/PHENOL 1 EACH UD MM PRN (13:05)
[2019-01-18] MEDS ORDERED: MAGNESIUM HYDROX 2400MG/30ML ORAL SUSPENSION 30 ML CUP PO PRN (13:05)
[2019-01-18] MEDS ORDERED: cloNIDine HCL 0.1 MG TABLET PO PRN (13:05)
[2019-01-18] MEDS ORDERED: ACETAMINOPHEN 325 MG TABLET (FP) PO PRN ×2 (13:05)
[2019-01-18] MEDS ORDERED: IBUPROFEN 400 MG TABLET (FP) PO PRN (13:05)
[2019-01-18] MEDS ORDERED: METHADONE HCL 10 MG TABLET (FOR DETOX USE ONLY) PO ONE (14:05)
[2019-01-18] MEDS: ALBUTEROL SO4 8 GM HFA INHALER IH SCH ×3 (14:15→22:30)
[2019-01-18] MEDS: GABAPENTIN 300 MG CAPSULE (FP) PO SCH ×2 (14:31→22:29)
[2019-01-18] MEDS: BUDESONIDE/FORMETEROL FUMARATE 160/4.5 mcg INHALER IH SCH ×2 (14:32→22:28)
[2019-01-18 17:11] LABS: HEMATOCRIT 38.5 % (32.4-45.2); HEMOGLOBIN 12.7 GM/dL (10.7-15.3); MCH 27.9 pg (25.7-33.7); MCHC 32.8 g/dl (32.0-36.0); MEAN CELL VOLUME 84.9 fl (80-96); MEAN PLT VOLUME 8.1 fl (7.5-11.1); PLATELET COUNT 264 K/MM3 (134-434); RBC 4.54 M/mm3 (3.60-5.2); RDW 15.9 % (11.6-15.6); WHITE BLOOD COUNT 8.4 K/mm3 (4.0-10.0)
[2019-01-18 17:33] LABS: ALBUMIN 3.3 g/dl (3.4-5.0); BILIRUBIN,TOTAL 0.4 mg/dL (0.2-1); BLOOD UREA NITROGEN 12.2 mg/dL (7-18); CALCIUM 8.8 mg/dL (8.5-10.1); CREATININE 0.7 mg/dL (0.55-1.3); POTASSIUM 3.6 mmol/L (3.5-5.1); TOT PROT 7.7 g/dl (6.4-8.2)
[2019-01-18] MEDS: THIAMINE HCL 100 MG TABLET (FP) PO SCH ×2 (22:27→22:33)
[2019-01-18] MEDS: MELATONIN 5 MG TABLETS PO PRN (22:29)
[2019-01-18] MEDS: MONTELUKAST NA 10 MG TABLET PO SCH (22:29)
[2019-01-19] MEDS: ALBUTEROL SO4 8 GM HFA INHALER IH SCH ×2 (08:08→09:55)
--- NOTE | 2019-01-19 08:11 | PN ---
Teaching Attending Note Name of Resident: Wayne Rivas ATTENDING PHYSICIAN STATEMENT I saw and evaluated the patient. I reviewed the resident's note and discussed the case with the resident. I agree with the resident's findings and plan as documented. SUBJECTIVE: I agree to subjective findings of resident. OBJECTIVE: I agree to objective findings of resident. ASSESSMENT AND PLAN: Agree with plan to admit to detox. Dr. Schultz
[2019-01-19] MEDS ORDERED: ALBUTEROL SO4 2.5/IPRATROPIUM 0.5 INH SOL 3 ML VIAL.NEB. NEB ONE (08:13)
[2019-01-19] MEDS ORDERED: METHADONE HCL 5 MG TABLET (FOR DETOX USE ONLY) ONE (08:55)
[2019-01-19] MEDS ORDERED: METHADONE HCL 10 MG TABLET (FOR DETOX USE ONLY) ONE (08:55)
[2019-01-19] MEDS: GABAPENTIN 300 MG CAPSULE (FP) PO SCH ×2 (09:10→22:41)
[2019-01-19] MEDS: BUDESONIDE/FORMETEROL FUMARATE 160/4.5 mcg INHALER IH SCH ×2 (09:10→22:40)
[2019-01-19] MEDS: PRENATAL VITAMINS W/ FOLIC ACID TABLET (FP) PO SCH (09:10)
[2019-01-19] MEDS ORDERED: METHADONE (DETOX) 20 MG, METHADONE (DETOX) 5 MG PO ONE (10:00)
[2019-01-19] MEDS ORDERED: ALBUTEROL SO4 0.083% IH SOL 2.5 MG/3 ML VIAL.NEB. NEB PRN (10:40)
[2019-01-19] MEDS ORDERED: predniSONE 20 MG TABLET (UD) PO ONE (10:41)
[2019-01-19] MEDS ORDERED: chlordiazePOXIDE HCL 10 MG CAPSULE PO PRN (10:46)
--- NOTE | 2019-01-19 10:50 | PN ---
[facility] CIWA - CIWA Score Nausea/Vomitin-Mild Nausea/No Vomiting Muscle Tremors: 4-Moderate,w/Arms Extend Anxiety: 3 Agitation: 2 Paroxysmal Sweats: 1-Minimal Palms Moist Orientation: 0-Oriented Tacttile Disturbances: 1-Very Mild Itch/Numbness Auditory Disturbances: 0-None Visual Disturbances: 0-None Headache: 1-Very Mild CIWA-Ar Total Score: 13 BHS COWS - Scale Resting Pulse: 0= [place] 80 or Below Sweatin= Chills/Flushing Restless Observation: 0= Sits Still Pupil Size: 0= Normal to Room Light Bone or Joint Aches: 1= Mild Discomfort Runny Nose/ Eye Tearin= Nasal Congestion GI Upset > 30mins: 2= Nausea/Diarrhea (no diarrhea) Tremor Observation of Outstretched Hands: 2= Slight Tremor Visible Yawning Observation: 1= 1-2x During Session Anxiety or Irritability: 2=Irritable/Anxious Goose Flesh Skin: 3=Piloerection COWS Score: 13 S Progress Note (SOAP) Subjective: asthmatic episode ventolin with nebulizer additional prednison nathaniel patient resting on bed comfortably Objective: 01/19/19 10:50 Vital Signs Temperature 96.4 F L 01/19/19 09:12 Pulse Rate 66 01/19/19 09:12 Respiratory Rate 18 01/19/19 09:12 Blood Pressure 92/58 L 01/19/19 09:12 O2 Sat by Pulse Oximetry (%) Laboratory Last Values WBC 8.4 K/mm3 (4.0-10.0) 01/18/19 14:50 RBC 4.54 M/mm3 (3.60-5.2) 01/18/19 14:50 Hgb 12.7 GM/dL (10.7-15.3) 01/18/19 14:50 Hct 38.5 % (32.4-45.2) 01/18/19 14:50 MCV 84.9 fl (80-96) 01/18/19 14:50 MCH 27.9 pg (25.7-33.7) 01/18/19 14:50 MCHC 32.8 g/dl (32.0-36.0) 01/18/19 14:50 RDW 15.9 % (11.6-15.6) H 01/18/19 14:50 Plt Count 264 K/MM3 (134-434) D 01/18/19 14:50 MPV 8.1 fl (7.5-11.1) 01/18/19 14:50 Sodium 138 mmol/L (136-145) 01/18/19 14:50 Potassium 3.6 mmol/L (3.5-5.1) 01/18/19 14:50 Chloride 105 mmol/L (98-107) 01/18/19 14:50 Carbon Dioxide 25 mmol/L (21-32) 01/18/19 14:50 Anion Gap 9 MMOL/L (8-16) 01/18/19 14:50 BUN 12.2 mg/dL (7-18) 01/18/19 14:50 Creatinine 0.7 mg/dL (0.55-1.3) 01/18/19 14:50 Est GFR (CKD-EPI)AfAm 119.58 01/18/19 14:50 Est GFR (CKD-EPI)NonAf 103.18 01/18/19 14:50 Random Glucose 139 mg/dL (74-106) H 01/18/19 14:50 Calcium 8.8 mg/dL (8.5-10.1) 01/18/19 14:50 Total Bilirubin 0.4 mg/dL (0.2-1) 01/18/19 14:50 AST 20 U/L (15-37) 01/18/19 14:50 ALT 31 U/L (13-61) 01/18/19 14:50 Alkaline Phosphatase 150 U/L (45-117) H 01/18/19 14:50 Total Protein 7.7 g/dl (6.4-8.2) 01/18/19 14:50 Albumin 3.3 g/dl (3.4-5.0) L 01/18/19 14:50 RPR Titer Nonreactive (NONREACTIVE) 01/18/19 14:50 lab noted Assessment: 01/19/19 10:50 alcohol and opiate withdrawal sx 01/19/19 10:51 discuss medication assisted treatment program Plan: continue librium and methadone detox regimen
[2019-01-19] MEDS ORDERED: ALBUTEROL SO4 8 GM HFA INHALER IH PRN (11:36)
[2019-01-19] MEDS ORDERED: FLU VACCINE QUAD 60 MCG/0.5 ML (MDV 19-20) IM ONE (12:00)
[2019-01-19] MEDS: chlordiazePOXIDE HCL 25 MG CAPSULE PO SCH ×2 (12:00→22:40)
--- NOTE | 2019-01-19 14:42 | CONSULT ---
[facility] Psychiatric Consult - Data Date of interview: 01/19/19 Admission source: [facility] Identifying data: Revisit to [facility] for this 48 y/o female self- referred for detoxification treatment (DEDE issues : alcohol, heroincocaine). Patient is , no children, homeless, unemployed and supported on SSI benefits. This interview is conducted in the presence of medical students ( verbally authorized by patient). Substance Abuse History: Discussed with patient. Details in current [facility] report as follows : Smoking history: Current every day smoker. Have you smoked in the past 12 months: Yes. Hx Chewing Tobacco Use: No. Initiated information on smoking cessation: Yes. 'Breaking Loose' booklet given: 01/18/19. - Substances abused. Heroin. Substance route: Injection. Frequency: Daily. Amount used: 25-30 bags. Age of first use: 37. Date of last use: 01/17/19. * * Cocaine. Substance route: Smoking. Frequency: Daily. Amount used: $100-$ 500. Age of first use: 14. Date of last use: 01/17/19. Alcohol. Substance route: Oral. Frequency: 3-6 times per week. Amount used: 2 pints of vodka & (3) 24oz wine cooler. Age of first use: 14. Date of last use: 01/16/19 Medical History: Medical profile is remarkable for pre-diabetes, sciatica, gastritis, bronchial asthma, arthritis, chronic lumbar pain (herniated discs) and history of treatment for gonorrhea. Allergy to penicillins. Psychiatric History: Distant history of psychiatric hospitalizations (during childhood). Patient is known to [facility] + [facility]. Hospitalized at ages 9 + 10 + 12 for suicide attempts via overdose with pills. Ms English reports that she has been diagnosed with Bipolar Disorder + MDD + Anxiety Disorder. Has been prescribed lithium in the past (had refused to comply with medication). No current psychiatric OPD care. Patient is prescribed prozac 20 mg/day + seroquel 25 mg/bid + gabapentin 300 mg/tid (primary care doctor). No longer on methadone maintenance. Physical/Sexual Abuse/Trauma History: Patient declines to discuss this domain. Additional Comment: Urine drug screen results: RAMONA-Cocaine, FEN-Fentanyl, MOP- Opiates, OXY-Oxycodone. Noted. Mental Status Exam - Mental Status Exam Alert and Oriented to: Time, Place, Person Cognitive Function: Good Patient Appearance: Well Groomed Mood: Withdrawn, Irritable Affect: Mood Congruent, Constricted Patient Behavior: Fatigued, Uncooperative Speech Pattern: Clear Voice Loudness: Normal Thought Process: Goal Oriented Thought Disorder: Not Present Hallucinations: Denies Suicidal Ideation: Denies Homicidal Ideation: Denies Insight/Judgement: Poor Sleep: Poorly, Difficulty falling asleep Appetite: Good Gait/Station: Normal Psychiatric Findings - Problem List ([place] 1, 2,3) (1) Alcohol dependence Current Visit: Yes Status: Chronic Qualifiers: Substance use status: uncomplicated Qualified Code(s): F10.20 - Alcohol dependence, uncomplicated (2) Opioid dependence Current Visit: Yes Status: Chronic (3) Cocaine dependence Current Visit: Yes Status: Chronic Qualifiers: Substance use status: uncomplicated Qualified Code(s): F14.20 - Cocaine dependence, uncomplicated (4) Nicotine dependence Current Visit: Yes Status: Chronic Qualifiers: Nicotine product type: cigarettes (5) Substance induced mood disorder Current Visit: Yes Status: Chronic (6) History of bipolar disorder Current Visit: Yes Status: Chronic Comment: Non-compliant with medications. (7) Insomnia Current Visit: Yes Status: Chronic - Initial Treatment Plan Initial Treatment Plan: Psychoeducation. Sleep hygiene. Detoxification. Medications resumed : gabapentin 300 mg po tid + seroquel 25 mg po bid + prozac 10 mg po daiy. Contact made with [facility] (last refills issued in October 2018). Side effects/benefits of these medications are discussed with the patient. Verbal consult granted to MD. Deluna
[2019-01-19] MEDS ORDERED: ONDANSETRON *ODT* 4 MG TABLET SL ONE (17:00)
[2019-01-19] MEDS: THIAMINE HCL 100 MG TABLET (FP) PO SCH ×2 (22:29→22:40)
[2019-01-19] MEDS: QUEtiapine FUMARATE 25 MG TABLET (FP) PO SCH (22:40)
[2019-01-19] MEDS: MONTELUKAST NA 10 MG TABLET PO SCH (22:41)
[2019-01-19] MEDS: MELATONIN 5 MG TABLETS PO PRN (22:41)
[2019-01-20] MEDS: chlordiazePOXIDE HCL 25 MG CAPSULE PO SCH ×3 (06:15→22:52)
[2019-01-20] MEDS ORDERED: predniSONE 10 MG TABLET (UD) PO ONE (10:00)
[2019-01-20] MEDS ORDERED: METHADONE HCL 10 MG TABLET (FOR DETOX USE ONLY) PO ONE (10:00)
[2019-01-20] MEDS: PRENATAL VITAMINS W/ FOLIC ACID TABLET (FP) PO SCH (10:37)
[2019-01-20] MEDS: FLUoxetine HCL 10 MG CAPSULE (FP) PO SCH (10:38)
[2019-01-20] MEDS: GABAPENTIN 300 MG CAPSULE (FP) PO SCH ×2 (10:39→22:25)
[2019-01-20] MEDS: BUDESONIDE/FORMETEROL FUMARATE 160/4.5 mcg INHALER IH SCH ×2 (10:43→22:24)
[2019-01-20] MEDS: QUEtiapine FUMARATE 25 MG TABLET (FP) PO SCH ×2 (10:43→22:25)
--- NOTE | 2019-01-20 11:36 | PN ---
[facility] CIWA - CIWA Score Nausea/Vomitin-Mild Nausea/No Vomiting Muscle Tremors: 3 Anxiety: 3 Agitation: 2 Paroxysmal Sweats: 2 Orientation: 0-Oriented Tacttile Disturbances: 0-None Auditory Disturbances: 1-Very Mild Visual Disturbances: 0-None Headache: 0-None Present CIWA-Ar Total Score: 12 BHS COWS - Scale Resting Pulse: 0= [place] 80 or Below Sweatin= Chills/Flushing Restless Observation: 0= Sits Still Pupil Size: 0= Normal to Room Light Bone or Joint Aches: 2= Severe Diffuse Aches Runny Nose/ Eye Tearin= Nasal Congestion GI Upset > 30mins: 2= Nausea/Diarrhea (no diarrhea) Tremor Observation of Outstretched Hands: 2= Slight Tremor Visible Yawning Observation: 2= >3x During Session Anxiety or Irritability: 2=Irritable/Anxious Goose Flesh Skin: 0=Smooth Skin COWS Score: 12 S Progress Note (SOAP) Subjective: patient report feeling irritable and try to control aggressive behavior toward others multidisciplinary team approach psychiatrist nurse counselor and medical provider psychiatrist will adjust seroquel dosage and medical provider will add librium 10 mg x 1 along with prn librium and standard librium patient reports that she can control herself that aggressive irritable feeling had before managed well by history team agrees that the patient stay for detox Objective: 01/20/19 11:39 Vital Signs Temperature 98.4 F 01/20/19 09:16 Pulse Rate 69 01/20/19 09:16 Respiratory Rate 16 01/20/19 09:16 Blood Pressure 90/57 L 01/20/19 09:16 O2 Sat by Pulse Oximetry (%) Laboratory Last Values WBC 8.4 K/mm3 (4.0-10.0) 01/18/19 14:50 RBC 4.54 M/mm3 (3.60-5.2) 01/18/19 14:50 Hgb 12.7 GM/dL (10.7-15.3) 01/18/19 14:50 Hct 38.5 % (32.4-45.2) 01/18/19 14:50 MCV 84.9 fl (80-96) 01/18/19 14:50 MCH 27.9 pg (25.7-33.7) 01/18/19 14:50 MCHC 32.8 g/dl (32.0-36.0) 01/18/19 14:50 RDW 15.9 % (11.6-15.6) H 01/18/19 14:50 Plt Count 264 K/MM3 (134-434) D 01/18/19 14:50 MPV 8.1 fl (7.5-11.1) 01/18/19 14:50 Sodium 138 mmol/L (136-145) 01/18/19 14:50 Potassium 3.6 mmol/L (3.5-5.1) 01/18/19 14:50 Chloride 105 mmol/L (98-107) 01/18/19 14:50 Carbon Dioxide 25 mmol/L (21-32) 01/18/19 14:50 Anion Gap 9 MMOL/L (8-16) 01/18/19 14:50 BUN 12.2 mg/dL (7-18) 01/18/19 14:50 Creatinine 0.7 mg/dL (0.55-1.3) 01/18/19 14:50 Est GFR (CKD-EPI)AfAm 119.58 01/18/19 14:50 Est GFR (CKD-EPI)NonAf 103.18 01/18/19 14:50 Random Glucose 139 mg/dL (74-106) H 01/18/19 14:50 Calcium 8.8 mg/dL (8.5-10.1) 01/18/19 14:50 Total Bilirubin 0.4 mg/dL (0.2-1) 01/18/19 14:50 AST 20 U/L (15-37) 01/18/19 14:50 ALT 31 U/L (13-61) 01/18/19 14:50 Alkaline Phosphatase 150 U/L (45-117) H 01/18/19 14:50 Total Protein 7.7 g/dl (6.4-8.2) 01/18/19 14:50 Albumin 3.3 g/dl (3.4-5.0) L 01/18/19 14:50 RPR Titer Nonreactive (NONREACTIVE) 01/18/19 14:50 HIV 1&2 Ag/Ab, 4th Gen Non reactive (Non Reactive) 01/18/19 13:20 lab noted Assessment: 01/20/19 11:39 alcohol and opiate withdrawal sx Plan: continue librium and methadone detox regimen
[2019-01-20] MEDS ORDERED: chlordiazePOXIDE HCL 10 MG CAPSULE PO ONE (14:00)
[2019-01-20] MEDS ORDERED: TRIMETHOBENZAMIDE HCL 200MG/2ML INJ IM ONE (18:45)
[2019-01-20] MEDS ORDERED: ONDANSETRON *ODT* 4 MG TABLET SL PRN (18:45)
[2019-01-20] MEDS: MONTELUKAST NA 10 MG TABLET PO SCH (22:25)
[2019-01-20] MEDS: MELATONIN 5 MG TABLETS PO PRN (22:26)
[2019-01-20] MEDS: THIAMINE HCL 100 MG TABLET (FP) PO SCH (22:27)
[2019-01-21] MEDS: chlordiazePOXIDE 5 MG CAPSULE PO SCH ×3 (05:47→22:22)
--- NOTE | 2019-01-21 09:14 | PN ---
[facility] CIWA - CIWA Score Nausea/Vomitin-Mild Nausea/No Vomiting Muscle Tremors: 2 Anxiety: 2 Agitation: 2 Paroxysmal Sweats: 1-Minimal Palms Moist Orientation: 0-Oriented Tacttile Disturbances: 0-None Auditory Disturbances: 0-None Visual Disturbances: 0-None Headache: 0-None Present CIWA-Ar Total Score: 8 BHS COWS - Scale Resting Pulse: 0= [place] 80 or Below Sweatin= Chills/Flushing Restless Observation: 0= Sits Still Pupil Size: 0= Normal to Room Light Bone or Joint Aches: 1= Mild Discomfort Runny Nose/ Eye Tearin= None GI Upset > 30mins: 2= Nausea/Diarrhea (no diarrhea) Tremor Observation of Outstretched Hands: 2= Slight Tremor Visible Yawning Observation: 1= 1-2x During Session Anxiety or Irritability: 1=Feels Anxious/Irritable Goose Flesh Skin: 0=Smooth Skin COWS Score: 8 [facility] Progress Note (SOAP) Subjective: doing well with librium and methadone detox regimen seen by psychiatrist treated wtih gabapentin seroquel and prozac tolerate well Objective: 01/21/19 09:17 Vital Signs Temperature 96.8 F L 01/21/19 06:23 Pulse Rate 60 01/21/19 06:23 Respiratory Rate 18 01/21/19 06:23 Blood Pressure 102/70 01/21/19 06:23 O2 Sat by Pulse Oximetry (%) Laboratory Last Values WBC 8.4 K/mm3 (4.0-10.0) 01/18/19 14:50 RBC 4.54 M/mm3 (3.60-5.2) 01/18/19 14:50 Hgb 12.7 GM/dL (10.7-15.3) 01/18/19 14:50 Hct 38.5 % (32.4-45.2) 01/18/19 14:50 MCV 84.9 fl (80-96) 01/18/19 14:50 MCH 27.9 pg (25.7-33.7) 01/18/19 14:50 MCHC 32.8 g/dl (32.0-36.0) 01/18/19 14:50 RDW 15.9 % (11.6-15.6) H 01/18/19 14:50 Plt Count 264 K/MM3 (134-434) D 01/18/19 14:50 MPV 8.1 fl (7.5-11.1) 01/18/19 14:50 Sodium 138 mmol/L (136-145) 01/18/19 14:50 Potassium 3.6 mmol/L (3.5-5.1) 01/18/19 14:50 Chloride 105 mmol/L (98-107) 01/18/19 14:50 Carbon Dioxide 25 mmol/L (21-32) 01/18/19 14:50 Anion Gap 9 MMOL/L (8-16) 01/18/19 14:50 BUN 12.2 mg/dL (7-18) 01/18/19 14:50 Creatinine 0.7 mg/dL (0.55-1.3) 01/18/19 14:50 Est GFR (CKD-EPI)AfAm 119.58 01/18/19 14:50 Est GFR (CKD-EPI)NonAf 103.18 01/18/19 14:50 Random Glucose 139 mg/dL (74-106) H 01/18/19 14:50 Calcium 8.8 mg/dL (8.5-10.1) 01/18/19 14:50 Total Bilirubin 0.4 mg/dL (0.2-1) 01/18/19 14:50 AST 20 U/L (15-37) 01/18/19 14:50 ALT 31 U/L (13-61) 01/18/19 14:50 Alkaline Phosphatase 150 U/L (45-117) H 01/18/19 14:50 Total Protein 7.7 g/dl (6.4-8.2) 01/18/19 14:50 Albumin 3.3 g/dl (3.4-5.0) L 01/18/19 14:50 RPR Titer Nonreactive (NONREACTIVE) 01/18/19 14:50 HIV 1&2 Ag/Ab, 4th Gen Non reactive (Non Reactive) 01/18/19 13:20 lab noted Assessment: 01/21/19 09:18 alcohol and opiate withdrawal sx Plan: continue librium and methadone detox regimen
[2019-01-21] MEDS ORDERED: METHADONE HCL 5 MG TABLET (FOR DETOX USE ONLY) ONE (09:33)
[2019-01-21] MEDS ORDERED: METHADONE HCL 10 MG TABLET (FOR DETOX USE ONLY) ONE (09:33)
[2019-01-21] MEDS ORDERED: METHADONE (DETOX) 10 MG, METHADONE (DETOX) 5 MG PO ONE (10:00)
[2019-01-21] MEDS ORDERED: predniSONE 5 MG TABLET (UD) PO ONE (10:00)
[2019-01-21] MEDS: PRENATAL VITAMINS W/ FOLIC ACID TABLET (FP) PO SCH (10:32)
[2019-01-21] MEDS: QUEtiapine FUMARATE 25 MG TABLET (FP) PO SCH ×2 (10:32→22:21)
[2019-01-21] MEDS: GABAPENTIN 300 MG CAPSULE (FP) PO SCH ×2 (10:32→22:21)
[2019-01-21] MEDS: FLUoxetine HCL 10 MG CAPSULE (FP) PO SCH (10:32)
[2019-01-21] MEDS: BUDESONIDE/FORMETEROL FUMARATE 160/4.5 mcg INHALER IH SCH ×2 (11:30→22:28)
[2019-01-21] MEDS: MONTELUKAST NA 10 MG TABLET PO SCH (22:21)
[2019-01-21] MEDS: THIAMINE HCL 100 MG TABLET (FP) PO SCH (22:21)
[2019-01-21] MEDS: guaiFENesin 200 MG/10 ML 10 ML UNIT-DOSE CUPS PO PRN (22:22)
[2019-01-21] MEDS: MELATONIN 5 MG TABLETS PO PRN (22:24)
[2019-01-22] MEDS ORDERED: chlordiazePOXIDE HCL 10 MG CAPSULE PO PRN
[2019-01-22] MEDS: chlordiazePOXIDE HCL 10 MG CAPSULE PO SCH ×3 (05:54→22:28)
[2019-01-22] MEDS: METHOCARBAMOL 500 MG TABLET PO PRN (05:56)
[2019-01-22] MEDS: guaiFENesin 200 MG/10 ML 10 ML UNIT-DOSE CUPS PO PRN (07:11)
[2019-01-22] MEDS ORDERED: METHADONE HCL 10 MG TABLET (FOR DETOX USE ONLY) PO ONE (10:00)
[2019-01-22] MEDS: QUEtiapine FUMARATE 25 MG TABLET (FP) PO SCH ×2 (10:22→22:28)
[2019-01-22] MEDS: PRENATAL VITAMINS W/ FOLIC ACID TABLET (FP) PO SCH (10:22)
[2019-01-22] MEDS: GABAPENTIN 300 MG CAPSULE (FP) PO SCH ×2 (10:22→22:28)
[2019-01-22] MEDS: BUDESONIDE/FORMETEROL FUMARATE 160/4.5 mcg INHALER IH SCH ×2 (10:23→22:27)
[2019-01-22] MEDS: FLUoxetine HCL 10 MG CAPSULE (FP) PO SCH ×2 (10:23→10:26)
--- NOTE | 2019-01-22 17:56 | PN ---
[facility] CIWA - CIWA Score Nausea/Vomitin-No Nausea/No Vomiting Muscle Tremors: None Anxiety: 1-Mildly Anxious Agitation: 0-Normal Activity Paroxysmal Sweats: No Perspiration Orientation: 0-Oriented Tacttile Disturbances: 0-None Auditory Disturbances: 0-None Visual Disturbances: 1-Very Mild Sensitivity Headache: 0-None Present CIWA-Ar Total Score: 2 S COWS - Scale Resting Pulse: 0= [place] 80 or Below Sweatin= No chills or Flushing Restless Observation: 0= Sits Still Pupil Size: 0= Normal to Room Light Bone or Joint Aches: 0= None Runny Nose/ Eye Tearin= None GI Upset > 30mins: 0= None Tremor Observation of Outstretched Hands: 0= None Yawning Observation: 1= 1-2x During Session Anxiety or Irritability: 1=Feels Anxious/Irritable Goose Flesh Skin: 0=Smooth Skin COWS Score: 2 S Progress Note (SOAP) Subjective: Fatigue. Objective: PATIENT A & O X 3, OBSERVED AMBULATING ON DETOX UNIT UNASSISTED. IN NO ACUTE DISTRESS. 01/22/19 17:50 Vital Signs Temperature 98.4 F 01/22/19 13:25 Pulse Rate 80 01/22/19 13:25 Respiratory Rate 18 01/22/19 13:25 Blood Pressure 88/56 L 01/22/19 13:25 O2 Sat by Pulse Oximetry (%) Laboratory Tests 01/18/19 01/18/19 01/18/19 13:20 13:20 14:50 WBC 8.4 RBC 4.54 Hgb 12.7 Hct 38.5 MCV 84.9 MCH 27.9 MCHC 32.8 RDW 15.9 H Plt Count 264 D MPV 8.1 Sodium Potassium Chloride Carbon Dioxide Anion Gap BUN Creatinine Est GFR (CKD-EPI)AfAm Est GFR (CKD-EPI)NonAf Random Glucose Calcium Total Bilirubin AST ALT Alkaline Phosphatase Total Protein Albumin RPR Titer Hep C Ab Diagnostic >11.0 H HCV RNA PCR w/Genot Rflx Hcv not detected Liver Fibrosis Interp HIV 1&2 Ag/Ab, 4th Gen Non reactive 01/18/19 01/18/19 14:50 14:50 WBC RBC Hgb Hct MCV MCH MCHC RDW Plt Count MPV Sodium 138 Potassium 3.6 Chloride 105 Carbon Dioxide 25 Anion Gap 9 BUN 12.2 Creatinine 0.7 Est GFR (CKD-EPI)AfAm 119.58 Est GFR (CKD-EPI)NonAf 103.18 Random Glucose 139 H Calcium 8.8 Total Bilirubin 0.4 AST 20 ALT 31 Alkaline Phosphatase 150 H Total Protein 7.7 Albumin 3.3 L RPR Titer Nonreactive Hep C Ab Diagnostic HCV RNA PCR w/Genot Rflx Liver Fibrosis Interp HIV 1&2 Ag/Ab, 4th Gen LABS NOTED. PATIENT HAS HAD ELEVATED ALKALINE PHOSPHATASE LEVELS ON PREVIOUS ADMISSIONS. 01/22/19 17:52 Assessment: 01/22/19 17:51 WITHDRAWAL SYMPTOMS. ELEVATED ALKALINE PHOSPHATASE LEVEL. 01/22/19 17:51 Plan: CONTINUE DETOX. PATIENT REPORTS THAT SHE HAS CONSULTED MEDICAL PROVIDER PREVIOUSLY FOR POSITIVE HCV AB RESULT IN PAST (AT [place], [place]) AND THAT, PER THAT MEDICAL PROVIDER, HER BODY WAS EXPOSED TO BUT CLEARED THE VIRUS WITHOUT TREATMENT. DETOX ADMISSION HCV RNA RESULT NOTED TO BE UNDETECTABLE. PATIENT ADVISED TO FOLLOW-UP WITH INVESTMENT FUND MANAGER AFTER DISCHARGE FROM DETOX FOR HISTORY OF HCV EXPOSURE. PATIENT VERBALIZED UNDERSTANDING OF RECOMMENDATION. COPIES OF RESULTS OF ALL LABS DRAWN WHILE ADMITTED FOR DETOX GIVEN TO PATIENT AT TIME OF DISCHARGE FROM DETOX UNIT. PATIENT SCHEDULED FOR D/C FROM DETOX UNIT TOMORROW.
[2019-01-22] MEDS: THIAMINE HCL 100 MG TABLET (FP) PO SCH (22:27)
[2019-01-22] MEDS: MELATONIN 5 MG TABLETS PO PRN (22:28)
[2019-01-22] MEDS: MONTELUKAST NA 10 MG TABLET PO SCH (22:28)
[2019-01-23] MEDS ORDERED: chlordiazePOXIDE HCL 10 MG CAPSULE PO ONE (05:00)
[2019-01-23] MEDS ORDERED: METHADONE HCL 5 MG TABLET (FOR DETOX USE ONLY) PO ONE (06:00)
[2019-01-23] MEDS: METHOCARBAMOL 500 MG TABLET PO PRN (06:27)
[2019-01-23 06:30] VITALS: BP 97/64
[2019-01-23 10:03] VITALS: PULSE 85; TEMP 97
[2019-01-23] MEDS: GABAPENTIN 300 MG CAPSULE (FP) PO SCH (10:24)
[2019-01-23] MEDS: PRENATAL VITAMINS W/ FOLIC ACID TABLET (FP) PO SCH (10:24)
[2019-01-23] MEDS: BUDESONIDE/FORMETEROL FUMARATE 160/4.5 mcg INHALER IH SCH (10:24)
[2019-01-23] MEDS: QUEtiapine FUMARATE 25 MG TABLET (FP) PO SCH (10:24)
[2019-01-23] MEDS: FLUoxetine HCL 10 MG CAPSULE (FP) PO SCH (10:26)
--- NOTE | 2019-01-23 18:27 | DS ---
[facility] Detox Discharge Summary Admission Date: 01/18/19 Discharge Date: 01/23/19 - History Present History: Alcohol Dependence, Cocaine Dependence, Opioid Dependence Additional Comments: PATIENT WILL ATTEND '[facility]PATIENT [facility]GRAM ([place], [place]) FOR AFTERCARE. PATIENT WAS DISCHARGED FROM DETOX UNIT IN STABLE MEDICAL CONDITION. Pertinent Past History: History Of Bipolar Disorder, History Of Surgery To Repair laceration of Right Leg, Anxiety, Asthma, Pre-diabetes, Hep C (Virus Cleared without treatment), Elevated Alkaline Phosphatase Level, Gastritis, History Of Depression, Nicotine Dependence, Insomnia. - Physical Exam Results Vital Signs: Vital Signs Temperature 97.0 F L 01/23/19 10:02 Pulse Rate 85 01/23/19 10:02 Respiratory Rate 18 01/23/19 10:02 Blood Pressure 97/64 01/23/19 10:02 O2 Sat by Pulse Oximetry (%) Pertinent Admission Physical Exam Findings: WITHDRAWAL SYMPTOMS. Laboratory Tests 01/18/19 01/18/19 01/18/19 13:20 13:20 14:50 WBC 8.4 RBC 4.54 Hgb 12.7 Hct 38.5 MCV 84.9 MCH 27.9 MCHC 32.8 RDW 15.9 H Plt Count 264 D MPV 8.1 Sodium Potassium Chloride Carbon Dioxide Anion Gap BUN Creatinine Est GFR (CKD-EPI)AfAm Est GFR (CKD-EPI)NonAf Random Glucose Calcium Total Bilirubin AST ALT Alkaline Phosphatase Total Protein Albumin RPR Titer Hep C Ab Diagnostic >11.0 H HCV RNA PCR w/Genot Rflx Hcv not detected Liver Fibrosis Interp HIV 1&2 Ag/Ab, 4th Gen Non reactive 01/18/19 01/18/19 14:50 14:50 WBC RBC Hgb Hct MCV MCH MCHC RDW Plt Count MPV Sodium 138 Potassium 3.6 Chloride 105 Carbon Dioxide 25 Anion Gap 9 BUN 12.2 Creatinine 0.7 Est GFR (CKD-EPI)AfAm 119.58 Est GFR (CKD-EPI)NonAf 103.18 Random Glucose 139 H Calcium 8.8 Total Bilirubin 0.4 AST 20 ALT 31 Alkaline Phosphatase 150 H Total Protein 7.7 Albumin 3.3 L RPR Titer Nonreactive Hep C Ab Diagnostic HCV RNA PCR w/Genot Rflx Liver Fibrosis Interp HIV 1&2 Ag/Ab, 4th Gen LABS NOTED. - Treatment Hospital Course: Detox Protocol Followed, Detoxed Safely, Responded well, Discharged Condition Good Patient has Accepted a Rehab Referral to: PATIENT WILL ATTEND [facility]PAT[facility] PROGRAM ([place], [place]). - Medication Discharge Medications: Ambulatory Orders Folic Acid 1 tablet PO DAILY 12/04/18 Iron/Vit C/Fructooligosacchard [Chewable Iron 30 mg Tablet] 1 tablet PO DAILY Montelukast Na [Singulair -] 10 mg PO HS 12/04/18 Quetiapine Fumarate [Seroquel -] 25 mg PO BID 12/04/18 Albuterol Sulfate Inhaler - [Ventolin Hfa Inhaler -] 2 inh PO Q4H PRN 01/18/19 Budesonide/Formeterol Fumarate [SYMBICORT 160/4.5mcg -] 1 inh PO BID 01/18/19 Gabapentin 300 mg PO BID 01/18/19 Thiamine Mononitrate [Vitamin B-1] 100 mg PO DAILY 01/18/19 Naloxone HCl [Narcan] 4 mg NS ASDIR PRN #1 spray 01/19/19 - Diagnosis (1) Alcohol dependence Status: Chronic Qualifiers: Substance use status: uncomplicated Qualified Code(s): F10.20 - Alcohol dependence, uncomplicated (2) Cocaine dependence Status: Chronic Qualifiers: Substance use status: uncomplicated Qualified Code(s): F14.20 - Cocaine dependence, uncomplicated (3) History of bipolar disorder Status: Chronic (4) Insomnia Status: Chronic Qualifiers: Insomnia type: unspecified Qualified Code(s): G47.00 - Insomnia, unspecified (5) Nicotine dependence Status: Chronic Qualifiers: Nicotine product type: cigarettes Substance use status: uncomplicated Qualified Code(s): F17.210 - Nicotine dependence, cigarettes, uncomplicated (6) Opioid dependence Status: Chronic Qualifiers: Substance use status: uncomplicated Qualified Code(s): F11.20 - Opioid dependence, uncomplicated (7) Substance induced mood disorder Status: Chronic - AMA Did Patient Leave Against Medical Advice: No
== END 2019-01-23 10:45 | disposition home or self-care (01) | DRG 773 ==
LOC: YASAS 11:25 → Y3N 14:01
PROVIDERS: ADMIT Allergy & Immunology; ATTEND Allergy & Immunology
PROC: HZ2ZZZZ Detoxification Services for Substance Abuse Treatment (ICD-10-PCS; principal; 2019-01-18)
DX: F11.23 Opioid dependence with withdrawal (principal); F14.20 Cocaine dependence, uncomplicated; F17.210 Nicotine dependence, cigarettes, uncomplicated; F19.24 Other psychoactive substance dependence with psychoactive substance-induced mood disorder; G47.00 Insomnia, unspecified; R74.0 Nonspecific elevation of levels of transaminase and lactic acid dehydrogenase [LDH]; R73.03 Prediabetes; J45.909 Unspecified asthma, uncomplicated; M54.30 Sciatica, unspecified side; M54.9 Dorsalgia, unspecified; G89.29 Other chronic pain; Z88.0 Allergy status to penicillin; Z91.013 Allergy to seafood; Z87.42 Personal history of other diseases of the female genital tract
CPT/HCPCS: 36415; 80053; 85027; 86593; 86803; 87389; 94640; Q0162; Q2036

== ENCOUNTER 2019-12-18 10:53 | Inpatient (IN) | payer OTHER ==
--- NOTE | 2019-12-18 10:49 | BHS.RME ---
Substance Use & Tx History - Substance Use History Heroin Substance amount: 20 bags Frequency of use: Daily Substance route: Inhalation (ex: sniffing or snorting) Date of Last Use: 12/16/19
--- OUTSIDE RECORDS SUMMARY | 2019-12-18 10:57 | XMS ---
:1970 Author Organization [facility] Support Name Relationship Address Phone UE Unavailable Unavailable Unavailable GLEN SHER MOTHER [address] [place] [address] Re-disclosure Warning The records that you are about to access may contain information from federally- assisted alcohol or drug abuse programs. If such information is present, then the following federally mandated warning applies: This information has been disclosed to you from records protected by federal confidentiality rules (42 CFR part 2). The federal rules prohibit you from making any further disclosure of this information unless further disclosure is expressly permitted by the written consent of the person to whom it pertains or as otherwise permitted by 42 CFR part 2. A general authorization for the release of medical or other information is NOT sufficient for this purpose. The Federal rules restrict any use of the information to criminally investigate or prosecute any alcohol or drug abuse patient.The records that you are about to access may contain highly sensitive health information, the redisclosure of which is protected by Article 27-F of the [facility] Public Health law. If you continue you may haveaccess to information: Regarding HIV / AIDS; Provided by facilities licensed or operated by the [facility] Office of Mental Health; or Provided by the [facility] Office for People With Developmental Disabilities. If such information is present, then the following [facility] mandated warning applies: This information has been disclosed to you from confidential records which are protected by state law. State law prohibits you from making any further disclosure of this information without the specific written consent of the person to whom it pertains, or as otherwise permitted by law. Any unauthorized further disclosure in violation of state law may result in a fine or fci sentence or both. A general authorization for the release of medical or other information is NOT sufficient authorization for further disclosure. Insurance Providers Payer name Policy type Policy ID Covered Covered alliance party's Policy P thompson / Coverage alliance party ID relationship to Ma Inf ormation type ma BEACON [id number] SP [id number] [employer] Results ID Date Data Source [id number] 10/21/2019 02:28:00 PM EDT [facility] Name Value Range Interpretation Code Description Data Landy rce(s) Supporting Document(s ) SARS-CoV-2 [place] RNA Resp Ql LINDA+probe This lab was ordered by [facility] a nd reported by [facility]. Procedure
[2019-12-18 16:26] VITALS: BMI 23.3
--- OUTSIDE RECORDS SUMMARY | 2019-12-18 16:50 | XMS ---
:1970 Author Organization [facility] Support Name Relationship Address Phone UE Unavailable Unavailable Unavailable GLEN SHER MOTHER [address] [place] [address] Re-disclosure Warning The records that you are [...] is protected by Article 27-F of the [facility] Public Health law. If you continue you may haveaccess to information: Regarding HIV / AIDS; Provided by facilities licensed or operated by the [facility] Office of Mental Health; or Provided by the [facility] Office for People With Developmental Disabilities. If such information is present, then the following [facility] mandated warning applies: This information has [...] law may result in a fine or custodial sentence or both. A general authorization for the release of medical or other information is NOT sufficient authorization for further disclosure. Insurance Providers Payer name Policy type Policy ID Covered Covered democrat's Policy P thompson / Coverage democrat ID relationship to Ma Inf ormation type ma BEACON [id number] SP [id number] [employer] Results ID Date Data Source [id number] 10/21/2019 02:28:00 PM EDT [facility] Name Value Range Interpretation Code Description Data Landy rce(s) Supporting Document(s ) SARS-CoV-2 [facility] RNA Resp Ql LINDA+probe This lab was ordered by [facility] a nd reported by [facility]. Procedure
--- NOTE | 2019-12-18 16:57 | BHS.RME ---
Substance Use & Tx History - Substance Use History Heroin Substance amount: 20 bags Frequency of use: Daily Substance route: Injection (ex: intravenous or skin popping) Date of Last Use: 12/17/19 Cocaine-Crack Substance amount: $300 Frequency of use: Daily Substance route: Injection (ex: intravenous or skin popping) Date of Last Use: 12/16/19 - Last Treatment Date of last treatment: 01/18/19 Where was last treatment: Detox Physical/Psych/Mental Status - Behavior General Behavior: Increased activity (restlessness, agitation) Eye Contact: Normal Other Behaviors: Mannerisms - Cooperativeness Cooperativeness: Cooperative - Thinking Thought Processes: Tight, Logical Thought content: Future oriented - Physical Health Problems Is patient presently having any pain?: Yes Does patient presently have any injuries (include location): No Does patient currently have a fever: No COWS - Scale Resting Pulse: 1= MD 81-100 Sweatin= Chills/Flushing Restless Observation: 1= Difficult to Sit Still Pupil Size: 1= Pupils >than Normal Bone or Joint Aches: 2= Severe Diffuse Aches Runny Nose/ Eye Tearin= Runny Nose/Eyes GI Upset > 30mins: 2= Nausea/Diarrhea Tremor Observation: 2= Slight Tremor Visible Yawning Observation: 1= 1-2x During Session Anxiety or Irritability: 1=Feels Anxious/Irritable Goose Flesh Skin: 3=Piloerection COWS Score: 17 CIWA Nausea/Vomitin Muscle Tremors: 2 Anxiety: 2 Agitation: 2 Paroxysmal Sweats: 2 Orientation: 0-Oriented Tacttile Disturbances: 2-Mild Itch/Numbness/Burn Auditory Disturbances: 1-Very Mild Visual Disturbances: 0-None Headache: 0-None Present CIWA-Ar Total Score: 13
--- NOTE | 2019-12-18 17:03 | HP ---
COWS - Scale Resting Pulse: 1= NE 81-100 Sweatin= Chills/Flushing Restless Observation: 1= Difficult to Sit Still Pupil Size: 1= Pupils >than Normal Bone or Joint Aches: 2= Severe Diffuse Aches Runny Nose/ Eye Tearin= Runny Nose/Eyes GI Upset > 30mins: 2= Nausea/Diarrhea Tremor Observation: 2= Slight Tremor Visible Yawning Observation: 1= 1-2x During Session Anxiety or Irritability: 1=Feels Anxious/Irritable Goose Flesh Skin: 3=Piloerection COWS Score: 17 CIWA Score Nausea/Vomitin Muscle Tremors: 2 Anxiety: 2 Agitation: 2 Paroxysmal Sweats: 2 Orientation: 0-Oriented Tacttile Disturbances: 2-Mild Itch/Numbness/Burn Auditory Disturbances: 1-Very Mild Visual Disturbances: 0-None Headache: 0-None Present CIWA-Ar Total Score: 13 - Admission Criteria OASAS Guidelines: Admission for Medically Managed Detox: Requires at least one of the followin. CIWA greater than 12 2. Seizures within the past 24 hours 3. Delirium tremens within the past 24 hours 4. Hallucinations within the past 24 hours 5. Acute intervention needed for co occurring medical disorder 6. Acute intervention needed for co occurring psychiatric disorder 7. Severe withdrawal that cannot be handled at a lower level of care (continued vomiting, continued diarrhea, abnormal vital signs) requiring intravenous medication and/or fluids 8. Patient presents the following: CIWA greater than 12 Admission Criteria Met: Admission criteria met Admitting History and Physical - Past Medical History ...: No - Smoking History Smoking history: Current every day smoker Have you smoked in the past 12 months: Yes Aproximately how many cigarettes per day: 25 Admission ROS S - HPI Chief Complaint: I want to get clean from the heroin Allergies/Adverse Reactions: Allergies Allergy/AdvReac Type Severity Reaction Status Date / Time Penicillins AdvReac Hives Verified 12/18/19 16:06 shellfish derived AdvReac Swelling Verified 12/18/19 16:06 History of Present Illness: 49 nyears old woman with heroin and alcohol dependence presents for detox. She denies seizures or blackouts, reports blackouts in the past. Exam Limitations: No Limitations - Ebola screening Have you traveled outside of the country in the last 21 days: No Have you had contact with anyone from an Ebola affected area: No Have you been sick,other than usual withdrawal symptoms: No Do you have a fever: No - Review of Systems Constitutional: Chills, Loss of Appetite, Changes in sleep, Weight Stable EENT: reports: Blurred Vision, Recent change in vision, Nose Congestion Cardiac: reports: No Symptoms Reported GI: reports: No Symptoms Reported : reports: No Symptoms Reported Musculoskeletal: reports: Back Pain, Joint Pain, Muscle Pain, Muscle Weakness Integumentary: reports: Flushing Neuro: reports: Numbness, Tremors Endocrine: reports: No Symptoms Reported Hematology: reports: Anemia Psychiatric: reports: Anxious, Depressed Other Systems: Reviewed and Negative Patient History - Patient Medical History Hx Anemia: Yes Hx Asthma: Yes Hx Chronic Obstructive Pulmonary Disease (COPD): No Hx Cancer: No Hx Cardiac Disorders: No Hx Congestive Heart Failure: No Hx Hypertension: No Hx Hypercholesterolemia: No Hx Pacemaker: No HX Cerebrovascular Accident: No Hx Seizures: No Hx Dementia: No Hx Diabetes: No Hx Gastrointestinal Disorders: No Hx Liver Disease: No Hx Genitourinary Disorders: No Hx Sexually Transmitted Disorders: No Hx Renal Disease (ESRD): No Hx Thyroid Disease: No Hx Human Immunodeficiency Virus (HIV): No Hx Hepatitis C: Yes Hx Depression: Yes Hx Suicide Attempt: Yes (remote hx) Hx Bipolar Disorder: Yes Hx Schizophrenia: No - Patient Surgical History Past Surgical History: Yes Hx Neurologic Surgery: No Hx Cataract Extraction: No Hx Cardiac Surgery: No Hx Lung Surgery: No Hx Breast Surgery: No Hx Breast Biopsy: No Hx Abdominal Surgery: No Hx Appendectomy: No Hx Cholecystectomy: No Hx Genitourinary Surgery: No Hx Section: No Hx Orthopedic Surgery: No Other Surgical History: R leg nerve repair 1981 Anesthesia Reaction: No - PPD History Previous Implant?: Yes Documented Results: Negative w/proof Implanted On Prior R Admission?: Yes Date: 01/20/19 Results: 0MM PPD to be Administered?: No - Reproductive History Patient is a Female of Child Bearing Age (11 -55 yrs old): Yes Last Menstrual Period: 12/01/16 Patient : No - Smoking Cessation Smoking history: Current every day smoker Have you smoked in the past 12 months: Yes Aproximately how many cigarettes per day: 40 Hx Chewing Tobacco Use: No Initiated information on smoking cessation: Yes 'Breaking Loose' booklet given: 12/18/19 - Substances abused Alcohol Substance route: Oral Frequency: Daily Amount used: 1 pont of vodka Age of first use: 13 Date of last use: 12/16/19 Heroin Substance route: Injection Frequency: Daily Amount used: 20 bags/day Age of first use: 37 Date of last use: 12/17/19 Crack Substance route: Smoking Frequency: 3-6 times per week Amount used: $100 Age of first use: 14 Date of last use: 12/16/19 Cocaine Substance route: Injection Frequency: Daily Amount used: 2-3 grams Age of first use: 49 Date of last use: 12/16/19 Admission Physical Exam [facility] - Vital Signs Vital Signs: Vital Signs - 24 hr 12/18/19 16:18 Temperature 97.7 F Pulse Rate 86 Respiratory 18 Rate Blood Pressure 99/58 L - Physical General Appearance: Yes: Tremorous, Anxious HEENTM: Yes: Hearing grossly Normal, Normocephalic, Normal Voice Respiratory: Yes: Chest Non-Tender, Lungs Clear, Normal Breath Sounds, No Accessory Muscle Use, Wheezing Neck: Yes: No masses,lesions,Nodules, Supple Breast: Yes: Breast Exam Deferred Cardiology: Yes: Regular Rhythm, Regular Rate, S1, S2 Abdominal: Yes: Normal Bowel Sounds, Non Tender, Soft Genitourinary: Yes: Within Normal Limits Back: Yes: Normal Inspection Extremities: Yes: Normal Range of Motion, Non-Tender Neurological: Yes: watch mechanic II-XII NML intact, Fully Oriented, Alert, Normal Mood/Affect, Normal Response Integumentary: Yes: Track Duarte (arms and legs) Lymphatic: Yes: Within Normal Limits - Diagnostic (1) Nicotine dependence with withdrawal Current Visit: Yes Status: Acute Qualifiers: Nicotine product type: cigarettes Qualified Code(s): F17.213 - Nicotine dependence, cigarettes, with withdrawal (2) Alcohol dependence with uncomplicated withdrawal Current Visit: Yes Status: Acute (3) Opioid dependence, uncomplicated Current Visit: Yes Status: Acute (4) Cocaine dependence Current Visit: Yes Status: Chronic Qualifiers: Substance use status: uncomplicated Qualified Code(s): F14.20 - Cocaine dependence, uncomplicated (5) Herniated disc Current Visit: Yes Status: Chronic Qualifiers: Spinal region: lumbar Qualified Code(s): M51.26 - Other intervertebral disc displacement, lumbar region Cleared for Admission [facility] - Detox or Rehab [facility] Level of Care: Medically Managed Detox Regimen/Protocol: Methadone/Librium Claeared for Rehab Admission: No Breathalyzer - Breathalyzer Breathalyzer: 0 Urine Drug Screen - Test Device Lot number: [id number] Expiration date: 07/06/21 - Control Is test valid?: Yes - Results Drug screen NEGATIVE: No Urine drug screen results: RAMONA-Cocaine, FEN-Fentanyl, MOP-Opiates Inpatient Rehab Admission - Rehab Decision to Admit Inpatient rehab admission?: No
[2019-12-18] MEDS ORDERED: MENTHOL/PHENOL 1 EACH UD MM PRN (17:07)
[2019-12-18] MEDS ORDERED: BISMUTH SUBSALICYLATE 524 MG/30 ML UD PO PRN (17:07)
[2019-12-18] MEDS ORDERED: MAGNESIUM HYDROX 2400MG/30ML ORAL SUSPENSION 30 ML CUP PO PRN (17:07)
[2019-12-18] MEDS ORDERED: MAG HYDROX/AL HYDROX/SIMETH 30 ML UNIT-DOSE CUP PO PRN (17:07)
[2019-12-18] MEDS ORDERED: NICOTINE POLACRILEX 2 MG GUM BUC PRN (17:07)
[2019-12-18] MEDS ORDERED: MAGNESIUM CITRATE 300 ML BOTTLE PO PRN (17:07)
[2019-12-18] MEDS ORDERED: METHADONE HCL 10 MG TABLET (FOR DETOX USE ONLY) PO ONE (17:07)
[2019-12-18] MEDS ORDERED: ACETAMINOPHEN 325 MG TABLET (FP) PO PRN ×2 (17:07)
[2019-12-18] MEDS ORDERED: IBUPROFEN 400 MG TABLET (FP) PO PRN (17:07)
[2019-12-18] MEDS ORDERED: cloNIDine HCL 0.1 MG TABLET PO PRN (17:07)
[2019-12-18] MEDS ORDERED: METHOCARBAMOL 500 MG TABLET PO PRN (17:07)
[2019-12-18] MEDS ORDERED: chlordiazePOXIDE HCL 25 MG CAPSULE PO PRN (17:07)
[2019-12-18] MEDS ORDERED: ALBUTEROL SO4 HFA INHALER IH PRN (17:10)
[2019-12-18] MEDS: NICOTINE 14 MG/24 HOURS TOPICAL PATCH TD SCH (18:02)
[2019-12-18] MEDS ORDERED: THIAMINE HCL 100 MG TABLET (FP) PO SCH (22:00)
[2019-12-18] MEDS ORDERED: MONTELUKAST NA 10 MG TABLET PO SCH (22:00)
[2019-12-18] MEDS ORDERED: MELATONIN 5 MG TABLETS PO SCH (22:00)
[2019-12-18] MEDS: BUDESONIDE/FORMETEROL FUMARATE 160/4.5 mcg INHALER IH SCH (22:55)
[2019-12-18] MEDS: QUEtiapine FUMARATE 25 MG TABLET PO SCH (22:55)
[2019-12-18] MEDS: chlordiazePOXIDE HCL 25 MG CAPSULE PO SCH (22:55)
[2019-12-18] MEDS: GABAPENTIN 300 MG CAPSULE PO SCH (22:55)
[2019-12-19] MEDS: chlordiazePOXIDE HCL 25 MG CAPSULE PO SCH ×2 (06:42→10:34)
[2019-12-19] MEDS ORDERED: METHADONE HCL 5 MG TABLET (FOR DETOX USE ONLY) ONE (08:43)
[2019-12-19] MEDS ORDERED: METHADONE HCL 10 MG TABLET (FOR DETOX USE ONLY) ONE (08:44)
[2019-12-19] MEDS ORDERED: TRIMETHOBENZAMIDE HCL 200MG/2ML INJ IM PRN (09:39)
[2019-12-19] MEDS ORDERED: METHADONE (DETOX) 20 MG, METHADONE (DETOX) 5 MG PO ONE (10:00)
[2019-12-19] MEDS ORDERED: PANTOPRAZOLE 40 MG TABLET PO SCH (10:00)
[2019-12-19] MEDS ORDERED: PRENATAL VITAMINS W/ FOLIC ACID TABLET (FP) PO SCH (10:00)
[2019-12-19] MEDS: GABAPENTIN 300 MG CAPSULE PO SCH (10:34)
[2019-12-19] MEDS: BUDESONIDE/FORMETEROL FUMARATE 160/4.5 mcg INHALER IH SCH (10:35)
[2019-12-19] MEDS: QUEtiapine FUMARATE 25 MG TABLET PO SCH (10:35)
[2019-12-19] MEDS: NICOTINE 14 MG/24 HOURS TOPICAL PATCH TD SCH (10:35)
[2019-12-19 11:23] LABS: ALBUMIN 3.2 g/dl (3.4-5.0); BLOOD UREA NITROGEN 9.9 mg/dL (7-18); CALCIUM 8.6 mg/dL (8.5-10.1); POTASSIUM 3.9 mmol/L (3.5-5.1)
[2019-12-19 11:26] LABS: BILIRUBIN,TOTAL 0.8 mg/dL (0.2-1); CREATININE 0.8 mg/dL (0.55-1.3); TOT PROT 7.3 g/dl (6.4-8.2)
[2019-12-19 11:45] LABS: HEMATOCRIT 37.3 % (32.4-45.2); MCH 26.6 pg (25.7-33.7); MCHC 32.2 g/dl (32.0-36.0); MEAN CELL VOLUME 82.6 fl (80-96); MEAN PLT VOLUME 8.3 fl (7.5-11.1); PLATELET COUNT 227 K/MM3 (134-434); RBC 4.52 M/mm3 (3.60-5.2); RDW 14.9 % (11.6-15.6); WHITE BLOOD COUNT 4.8 K/mm3 (4.0-10.0)
--- NOTE | 2019-12-19 12:19 | CONSULT ---
[facility] Psychiatric Consult - Data Date of interview: 12/19/19 Admission source: Self-referred Identifying data: Ms English is a 49 years old female, unemployed receiving SSI, homeless seeking detox treatment for alcohol, opioid and cocaine Substance Abuse History: Reports history of alcohol, heroin and crack cocaine use. Refer to addiction counselor's summary for further information Medical History: Significant for anemia, bronchial asthma, pre diabetes mellitus, gastritis, arthritis, chronic lumbar pain (herniated discs), sciatica and history of treatment for gonorrhea. Allergy to penicillins. Smokes ci garettes 2 ppd Psychiatric History: Patient is known for 3 previous admissions to this facility. After being asked the first question while in the office as part of psychiatric interview, she got up and told telegraphic typewriter repairer:"I'm going back to my room, I don't feel well" Psychiatric Findings - Initial Treatment Plan Initial Treatment Plan: Please reconsult when patient is appropriate for psychiatric interview
[2019-12-19 13:14] VITALS: BP 118/74; PULSE 62; TEMP 97.8
--- NOTE | 2019-12-19 18:44 | DS ---
[facility] Detox Discharge Summary Admission Date: 12/18/19 - History Present History: Alcohol Dependence, Cocaine Dependence, Opioid Dependence Additional Comments: Pt decided to leave AMA despite encouragement to complete detox. Pt instructed to call 911 TIFFANIE if sick or withdrawal sxs and to see her PCP within 3 days. Pt left in stable condition. Pertinent Past History: Anemia Asthma HCV - Physical Exam Results Vital Signs: Vital Signs Temperature 97.8 F 12/19/19 12:41 Pulse Rate 62 12/19/19 12:41 Respiratory Rate 16 12/19/19 12:41 Blood Pressure 118/74 12/19/19 12:41 O2 Sat by Pulse Oximetry (%) 96 12/19/19 09:16 Pertinent Admission Physical Exam Findings: Withdrawal sxs Laboratory Tests 12/18/19 12/19/19 12/19/19 19:51 07:30 07:30 WBC RBC Hgb Hct MCV MCH MCHC RDW Plt Count MPV Sodium Potassium Chloride Carbon Dioxide Anion Gap BUN Creatinine Est GFR (CKD-EPI)AfAm Est GFR (CKD-EPI)NonAf Random Glucose Calcium Total Bilirubin AST ALT Alkaline Phosphatase Total Protein Albumin Syphilis Serology Non-reactive COVID-19 (LINDA) Not detected HIV Ag/Ab Combo Qual Negative 12/19/19 12/19/19 07:30 07:30 WBC 4.8 RBC 4.52 Hgb 12.0 Hct 37.3 MCV 82.6 MCH 26.6 MCHC 32.2 RDW 14.9 Plt Count 227 MPV 8.3 Sodium 141 Potassium 3.9 Chloride 109 H Carbon Dioxide 28 Anion Gap 4 L BUN 9.9 Creatinine 0.8 Est GFR (CKD-EPI)AfAm 101.04 Est GFR (CKD-EPI)NonAf 87.18 Random Glucose 91 Calcium 8.6 Total Bilirubin 0.8 AST 18 ALT 28 Alkaline Phosphatase 159 H Total Protein 7.3 Albumin 3.2 L Syphilis Serology COVID-19 (LINDA) HIV Ag/Ab Combo Qual Labs reviewed - Medication Discharge Medications: Ambulatory Orders Folic Acid 1 tablet PO DAILY 12/04/18 Iron/Vit C/Fructooligosacchard [Chewable Iron 30 mg Tablet] 1 tablet PO DAILY 12/04/18 Montelukast Na [Singulair -] 10 mg PO HS 12/04/18 Quetiapine Fumarate [Seroquel -] 25 mg PO BID 12/04/18 Albuterol Sulfate Inhaler - [Ventolin Hfa Inhaler -] 2 inh PO Q4H PRN 01/18/19 Budesonide/Formeterol Fumarate [SYMBICORT 160/4.5mcg -] 1 inh PO BID 01/18/19 Gabapentin 300 mg PO BID 01/18/19 Thiamine Mononitrate [Vitamin B-1] 100 mg PO DAILY 01/18/19 - Diagnosis (1) Anemia Status: Chronic (2) Asthma Status: Chronic (3) Alcohol dependence with uncomplicated withdrawal Status: Acute (4) Opioid dependence, uncomplicated Status: Acute (5) Cocaine dependence Status: Acute Qualifiers: Substance use status: uncomplicated Qualified Code(s): F14.20 - Cocaine dependence, uncomplicated (6) Depressive disorder Status: Chronic (7) Nicotine dependence Status: Chronic Qualifiers: Nicotine product type: cigarettes Substance use status: uncomplicated Qualified Code(s): F17.210 - Nicotine dependence, cigarettes, uncomplicated - AMA Did Patient Leave Against Medical Advice: Yes (Patient instructed to call 911 TIFFANIE if sick or withdrawal sxs)
[2019-12-20] MEDS ORDERED: chlordiazePOXIDE HCL 25 MG CAPSULE PO SCH (05:00)
[2019-12-20] MEDS ORDERED: METHADONE HCL 10 MG TABLET (FOR DETOX USE ONLY) PO ONE (10:00)
[2019-12-21] MEDS ORDERED: chlordiazePOXIDE HCL 10 MG CAPSULE PO PRN
[2019-12-21] MEDS ORDERED: chlordiazePOXIDE HCL 10 MG CAPSULE PO SCH (05:00)
[2019-12-21] MEDS ORDERED: METHADONE (DETOX) 10 MG, METHADONE (DETOX) 5 MG PO ONE (10:00)
[2019-12-22] MEDS ORDERED: chlordiazePOXIDE HCL 10 MG CAPSULE PO SCH (05:00)
[2019-12-22] MEDS ORDERED: METHADONE HCL 10 MG TABLET (FOR DETOX USE ONLY) PO ONE (10:00)
[2019-12-23] MEDS ORDERED: chlordiazePOXIDE HCL 10 MG CAPSULE PO ONE (05:00)
[2019-12-23] MEDS ORDERED: METHADONE HCL 5 MG TABLET (FOR DETOX USE ONLY) PO ONE (06:00)
== END 2019-12-19 13:15 | disposition left against medical advice (07) | DRG 770 ==
LOC: YASAS 10:53 → Y6N 16:47
PROVIDERS: ADMIT Allergy & Immunology; ATTEND Allergy & Immunology
PROC: HZ2ZZZZ Detoxification Services for Substance Abuse Treatment (ICD-10-PCS; principal; 2019-12-18)
DX: F10.230 Alcohol dependence with withdrawal, uncomplicated (principal); F11.20 Opioid dependence, uncomplicated; F14.20 Cocaine dependence, uncomplicated; F17.210 Nicotine dependence, cigarettes, uncomplicated; F32.9 Major depressive disorder, single episode, unspecified; D64.9 Anemia, unspecified; J45.909 Unspecified asthma, uncomplicated; M51.26 Other intervertebral disc displacement, lumbar region; M12.9 Arthropathy, unspecified; B18.2 Chronic viral hepatitis C; Z86.19 Personal history of other infectious and parasitic diseases; Z91.5 Personal history of self-harm; Z88.0 Allergy status to penicillin; Z91.013 Allergy to seafood; Z56.0 Unemployment, unspecified; Z59.0 Homelessness
CPT/HCPCS: 36415; 80053; 81025; 85027; 86780; 87389; U0003